=== PATIENT | male | born 1950 | race Caucasian/White ===

== ENCOUNTER 2022-03-12 23:05 | Inpatient (IN) ==
--- NOTE | 2022-03-12 23:25 | Emergency Department Note ---
Impression & Plan Sepsis, Acute hypernatremia, STEPHIE (acute kidney injury), Acute UTI Admit to the [facility] ED Provider Note NAME: ROSE MARY KOENIG AGE: 71 SEX: M ARRIVES VIA: Ambulance INFORMANT: EMS ED PROVIDER(S): Yumiko Nielson DO CHIEF COMPLAINT: Weakness PLAN: Disposition: Admit to the [facility] Condition: Guarded MEDICAL DECISION MAKING: The patient presents to the emergency department from [facility] with generalized weakness and a history of blood pressure of 70/30. The patient was incontinent of stool. Patient suffers from dementia. The patient has never been at this facility before. According to family and discussion with the nurses, he has arrived at the half-way just 4 weeks ago. The patient has a suprapubic catheter that is producing turbid thick urine. A septic protocol has revealed a white blood cell count of 29,000 with an elevated lactate. Patient remained hemodynamically stable while here in the emergency department. He was treated with 2 L of crystalloid IV and started on a saline drip. He was given IV Zosyn. Patient has a creatinine greater than 3 but we have no previous baseline values to compare to. Does have an elevated troponin. We have no previous EKGs for comparison. I discussed the case with [facility] ospitalist and they will evaluate the patient for further management. Triage Nursing notes reviewed and agree with them. The history is obtained from EMS. Prior medical records reviewed Vital Signs: reviewed and remarkable for tachycardic Differential diagnosis: Sepsis, UTI, dehydration, hyponatremia, hypoglycemia ER treatment provided: IV normal saline bolus-2 L IV normal saline drip IV Zosyn Diagnostics interpreted by me: ECG: Atrial flutter with variable AV block at a rate of 140 and a right bundle branch block. This was somewhat concerning for ischemia. Cardiac Monitoring: Atrial flutter at a rate of 136 Laboratory studies: See below Imaging studies: As per my interpretation Portable chest x-ray: No obvious pulmonary infiltrates or pleural effusions. HPI: 71/M arrives for evaluation of weakness. Patient presents from [facility] with generalized weakness and hypotension. Staff there assisted the patient to the bathroom found that he was extremely weak and found a blood pressure of 70/30. The patient was incontinent of stool. ROS: See above HPI for pertinent positives & negatives. A total of 10 systems reviewed and were otherwise negative. PAST MEDICAL HISTORY:Alzheimer's disease PAST SURGICAL HISTORY:See Below FAMILY HISTORY:See Below SOCIAL HISTORY:Patient was just moved into [facility] 4 weeks ago. HOME MEDICATIONS:See Below ALLERGIES:Bactrim VITALS:See Below PHYSICAL EXAMINATION: HEENT: Head - normocephalic and atraumatic. Pupils are equal, round, and reactive to light. Extraocular eye muscles are intact, and sclera are anicte yoselin. Nose - moist nasal mucosa without discharge. Mouth -family dry buccal mucosa. Oropharynx is nonerythematous and there is no tonsillar exudate or edema noted. Neck: Supple; no JVD or cervical lymphadenopathy Heart: Tachycardic rate regular rhythm There is a normal S1 and S2 with no murmurs, clicks, or gallops appreciated. Lungs: Clear to auscultation bilaterally with no wheezes, rales, or rhonchi. Abdomen: Soft, completely nontender, nondistended, with good bowel sounds. There are no palpable pulsatile masses or hepatosplenomegaly. There is no guarding, rigidity, or rebound noted. Extremities: No evidence of cyanosis, clubbing, or edema. There are easily palpable peripheral pulses. Skin: cold and dry with poor turgor and no rashes. ED COURSE: Times/Reassessments: 2310: Patient was evaluated in room C4. A complete history and physical was performed. Previous electronic medical records were reviewed. An order was placed for continuous cardiac monitoring. The patient was in a flutter at a rate of 109. An IV lock was initiated and a septic protocol was performed. The patient was bolused with 2 L of normal saline solution was placed on a normal saline drip. Chest x-ray was performed as described above. A urine specimen was obtained from the suprapubic catheter. The patient was treated with IV Zosyn. I discussed the case with the [facility] Hospitalist Yumiko Nielson DO Past Med/Surg History Medical History (Updated 03/13/22 @ 05:44 by Yumiko Nielson DO) Alzheimer disease Social History Smoking Status: Unknown if ever smoked Preferred Language: Bulgarian Feels Safe at Home: Yes Allergies Allergies Allergy/AdvReac Type Severity Reaction Status Date / Time sulfamethoxazole Allergy Unknown Verified 03/13/22 00:33 [From Bactrim] trimethoprim [From Bactrim] Allergy Unknown Verified 03/13/22 00:33 Results & Data (ED) Vital Signs Vital Signs - 24 hr 03/12/22 23:16 03/12/22 23:29 03/12/22 23:45 Temperature Temperature Source Pulse Rate 126 H Pulse Rate [Right Finger] Pulse Rate from SpO2 Sensor Respiratory Rate 16 Respiratory Effort / Characteristics Non-Labored Respiratory Depth Normal Blood Pressure 111/63 Blood Pressure [Right Arm] Blood Pressure Mean 79 Blood Pressure Mean [Right Arm] Pulse Oximetry 95 92 91 Oxygen Delivery Method Room Air Room Air Room Air Sepsis Recent Fever Within 48 Hours No Sepsis New/Unexplained Change in Mental Status No Sepsis Action Taken by Nursing No Action Required Pulse Oximetry Post Tiitration 03/13/22 00:21 03/13/22 00:21 03/13/22 01:44 Temperature 36.3 C L Temperature Source Rectal Pulse Rate Pulse Rate [Right Finger] 119 H Pulse Rate from SpO2 Sensor Respiratory Rate 20 Respiratory Effort / Characteristics Non-Labored Respiratory Depth Normal Blood Pressure Blood Pressure [Right Arm] 122/68 Blood Pressure Mean Blood Pressure Mean [Right Arm] 86 Pulse Oximetry 91 Oxygen Delivery Method Room Air Room Air Sepsis Recent Fever Within 48 Hours Sepsis New/Unexplained Change in Mental Status Sepsis Action Taken by Nursing Pulse Oximetry Post Tiitration 91 03/12/22 23:08 03/12/22 23:10 03/12/22 23:10 Temperature Temperature Source Pulse Rate 133 H 106 H Pulse Rate [Right Finger] Pulse Rate from SpO2 Sensor Respiratory Rate 22 25 H Respiratory Effort / Characteristics Respiratory Depth Blood Pressure 111/63 Blood Pressure [Right Arm] Blood Pressure Mean 79 Blood Pressure Mean [Right Arm] Pulse Oximetry Oxygen Delivery Method Sepsis Recent Fever Within 48 Hours Sepsis New/Unexplained Change in Mental Status Sepsis Action Taken by Nursing Pulse Oximetry Post Tiitration 03/12/22 23:30 03/12/22 23:30 03/13/22 00:00 Temperature Temperature Source Pulse Rate 102 H 124 H Pulse Rate [Right Finger] Pulse Rate from SpO2 Sensor 93 H 89 Respiratory Rate 23 19 Respiratory Effort / Characteristics Respiratory Depth Blood Pressure 103/63 Blood Pressure [Right Arm] Blood Pressure Mean 76 Blood Pressure Mean [Right Arm] Pulse Oximetry 91 80 L Oxygen Delivery Method Sepsis Recent Fever Within 48 Hours Sepsis New/Unexplained Change in Mental Status Sepsis Action Taken by Nursing Pulse Oximetry Post Tiitration 03/13/22 00:15 03/13/22 00:15 03/13/22 00:30 Temperature Temperature Source Pulse Rate 106 H Pulse Rate [Right Finger] Pulse Rate from SpO2 Sensor 95 H Respiratory Rate 21 Respiratory Effort / Characteristics Respiratory Depth Blood Pressure 122/68 127/58 L Blood Pressure [Right Arm] Blood Pressure Mean 86 81 Blood Pressure Mean [Right Arm] Pulse Oximetry 92 Oxygen Delivery Method Sepsis Recent Fever Within 48 Hours Sepsis New/Unexplained Change in Mental Status Sepsis Action Taken by Nursing Pulse Oximetry Post Tiitration 03/13/22 00:30 03/13/22 01:00 03/13/22 01:00 Temperature Temperature Source Pulse Rate 140 H Pulse Rate [Right Finger] Pulse Rate from SpO2 Sensor 93 H 99 H Respiratory Rate 22 22 Respiratory Effort / Characteristics Respiratory Depth Blood Pressure 118/59 L Blood Pressure [Right Arm] Blood Pressure Mean 78 Blood Pressure Mean [Right Arm] Pulse Oximetry Oxygen Delivery Method Sepsis Recent Fever Within 48 Hours Sepsis New/Unexplained Change in Mental Status Sepsis Action Taken by Nursing Pulse Oximetry Post Tiitration 03/13/22 01:30 03/13/22 02:00 03/13/22 02:00 Temperature Temperature Source Pulse Rate 119 H Pulse Rate [Right Finger] Pulse Rate from SpO2 Sensor Respiratory Rate 26 H 20 Respiratory Effort / Characteristics Respiratory Depth Blood Pressure 108/82 Blood Pressure [Right Arm] Blood Pressure Mean 90 Blood Pressure Mean [Right Arm] Pulse Oximetry 90 Oxygen Delivery Method Sepsis Recent Fever Within 48 Hours Sepsis New/Unexplained Change in Mental Status Sepsis Action Taken by Nursing Pulse Oximetry Post Tiitration 03/13/22 02:30 03/13/22 02:30 03/13/22 03:00 Temperature Temperature Source Pulse Rate 117 H Pulse Rate [Right Finger] Pulse Rate from SpO2 Sensor 95 H Respiratory Rate 21 Respiratory Effort / Characteristics Respiratory Depth Blood Pressure 121/62 128/60 Blood Pressure [Right Arm] Blood Pressure Mean 81 82 Blood Pressure Mean [Right Arm] Pulse Oximetry 92 Oxygen Delivery Method Sepsis Recent Fever Within 48 Hours Sepsis New/Unexplained Change in Mental Status Sepsis Action Taken by Nursing Pulse Oximetry Post Tiitration 03/13/22 03:00 Temperature Temperature Source Pulse Rate 115 H Pulse Rate [Right Finger] Pulse Rate from SpO2 Sensor Respiratory Rate 25 H Respiratory Effort / Characteristics Respiratory Depth Blood Pressure Blood Pressure [Right Arm] Blood Pressure Mean Blood Pressure Mean [Right Arm] Pulse Oximetry Oxygen Delivery Method Sepsis Recent Fever Within 48 Hours Sepsis New/Unexplained Change in Mental Status Sepsis Action Taken by Nursing Pulse Oximetry Post Tiitration Laboratory Data Result diagrams: 03/12/22 23:56 03/13/22 02:53 Lab Results 03/12/22 03/12/22 03/12/22 Range/Units 23:27 23:56 23:56 WBC 29.28 H (4.8-10.8) K/ul RBC 5.98 (4.63-6.08) M/uL Hgb 16.1 (14.0-18.0) g/dl Hct 51.7 H (40.1-51.0) % MCV 86.5 (80.0-100.0) fL MCH 26.9 (25.0-34.0) pg MCHC 31.1 L (32.0-36.0) g/dL RDW Std Deviation 57.0 H (36.4-46.3) fL RDW Coeff of Cristal 19.4 H (11.5-14.5) % Plt Count 243 (130-400) K/uL MPV 10.6 (9.4-12.4) fL Immature Gran % (Auto) 1.0 % Neut % (Auto) 87.2 % Lymph % (Auto) 5.7 % [place] % (Auto) 5.9 % Eos % (Auto) 0.0 % Baso % (Auto) 0.2 % Neut # (Auto) 25.53 H (1.4-6.5) K/uL Lymph # (Auto) 1.67 (1.2-3.4) K/uL [place] # (Auto) 1.73 H (0.24-0.82) K/uL Eos # (Auto) 0.01 (0-0.50) K/uL Baso # (Auto) 0.06 (0-0.2) K/uL Immature Gran # (Auto) 0.28 H (0.00-0.02) K/uL Sodium 162 H* (136-145) mmol/L Potassium 4.5 (3.5-5.1) mmol/L Chloride 120 H (98-107) mmol/L Carbon Dioxide 27 (21-32) mmol/L Anion Gap 15 H (3-11) BUN 89 H (6-23) mg/dl Creatinine 3.15 H (0.6-1.4) mg/dl Est Cr Clr Drug Dosing 20.7 ml/min Est GFR ( Amer) 21.5 ml/min Est GFR (Non-Af Amer) 18.6 ml/min BUN/Creatinine Ratio 28.3 H (10-20) Glucose 171 H (70-99(Fasting)) mg/dl Lactate (0.4-2.0) mmol/L Calcium 10.0 (8.5-10.1) mg/dl Total Bilirubin 0.7 (0.2-1.0) mg/dl AST 112 H (13-39) U/L ALT 60 H (7-52) U/L Alkaline Phosphatase 107 H (34-104) U/L Troponin I High Sens 171.6 H* (0-20) pg/ml Total Protein 8.8 H (6.0-8.3) gm/dl Albumin 4.3 (3.4-5.0) gm/dl Globulin 4.5 H (2.5-4.0) gm/dl Albumin/Globulin Ratio 1.0 (0.9-2) TSH (0.300-4.500) uIu/ml Free T4 (0.61-1.60) ng/dl Urine Color [place] Urine Appearance Turbid A (Clear) Urine pH 5.0 (4.5-7.5) Ur Specific [place] 1.027 (1.000-1.030) Urine Protein 2+ H (Negative) Urine Glucose (UA) Negative (Negative) Urine Ketones 1+ H (Negative) Urine Blood 3+ H (Negative) Urine Nitrite Positive A (Negative) Urine Bilirubin 1+ H (Negative) Urine Urobilinogen Negative (Negative) Ur Leukocyte Esterase 2+ H (Negative) Urine WBC (Auto) >30 H (0-5) /hpf Urine RBC (Auto) 5-10 H (0-4) /hpf U Hyaline Cast (Auto) 1-5 (0-5) /lpf U Epithel Cells (Auto) 10-20 H (0-5) /lpf Urine Bacteria (Auto) 1+ H (Negative) Urine Crystals Not Reportable Calcium Oxalate Crystal Present A (None Prsent) Amorphous Sediment Present A (None Prsent) Urine Osmolality (500-800) mOsm/kg Ur Random Sodium mmol/L Ur Random Potassium mmol/L SARS-CoV-2, RNA, NAAT (NEGATIVE) 03/12/22 03/13/22 03/13/22 Range/Units 23:56 00:00 00:00 WBC (4.8-10.8) K/ul RBC (4.63-6.08) M/uL Hgb (14.0-18.0) g/dl Hct (40.1-51.0) % MCV (80.0-100.0) fL MCH (25.0-34.0) pg MCHC (32.0-36.0) g/dL RDW Std Deviation (36.4-46.3) fL RDW Coeff of Cristal (11.5-14.5) % Plt Count (130-400) K/uL MPV (9.4-12.4) fL Immature Gran % (Auto) % Neut % (Auto) % Lymph % (Auto) % [place] % (Auto) % Eos % (Auto) % Baso % (Auto) % Neut # (Auto) (1.4-6.5) K/uL Lymph # (Auto) (1.2-3.4) K/uL [place] # (Auto) (0.24-0.82) K/uL Eos # (Auto) (0-0.50) K/uL Baso # (Auto) (0-0.2) K/uL Immature Gran # (Auto) (0.00-0.02) K/uL Sodium (136-145) mmol/L Potassium (3.5-5.1) mmol/L Chloride (98-107) mmol/L Carbon Dioxide (21-32) mmol/L Anion Gap (3-11) BUN (6-23) mg/dl Creatinine (0.6-1.4) mg/dl Est Cr Clr Drug Dosing ml/min Est GFR ( Amer) ml/min Est GFR (Non-Af Amer) ml/min BUN/Creatinine Ratio (10-20) Glucose (70-99(Fasting)) mg/dl Lactate (0.4-2.0) mmol/L Calcium (8.5-10.1) mg/dl Total Bilirubin (0.2-1.0) mg/dl AST (13-39) U/L ALT (7-52) U/L Alkaline Phosphatase (34-104) U/L Troponin I High Sens (0-20) pg/ml Total Protein (6.0-8.3) gm/dl Albumin (3.4-5.0) gm/dl Globulin (2.5-4.0) gm/dl Albumin/Globulin Ratio (0.9-2) TSH 5.556 H (0.300-4.500) uIu/ml Free T4 0.73 (0.61-1.60) ng/dl Urine Color Urine Appearance (Clear) Urine pH (4.5-7.5) Ur Specific [place] (1.000-1.030) Urine Protein (Negative) Urine Glucose (UA) (Negative) Urine Ketones (Negative) Urine Blood (Negative) Urine Nitrite (Negative) Urine Bilirubin (Negative) Urine Urobilinogen (Negative) Ur Leukocyte Esterase (Negative) Urine WBC (Auto) (0-5) /hpf Urine RBC (Auto) (0-4) /hpf U Hyaline Cast (Auto) (0-5) /lpf U Epithel Cells (Auto) (0-5) /lpf Urine Bacteria (Auto) (Negative) Urine Crystals Calcium Oxalate Crystal (None Prsent) Amorphous Sediment (None Prsent) Urine Osmolality 809 H (500-800) mOsm/kg Ur Random Sodium 39 mmol/L Ur Random Potassium 85.3 mmol/L SARS-CoV-2, RNA, NAAT (NEGATIVE) 03/13/22 03/13/22 03/13/22 Range/Units 00:06 01:00 02:20 WBC (4.8-10.8) K/ul RBC (4.63-6.08) M/uL Hgb (14.0-18.0) g/dl Hct (40.1-51.0) % MCV (80.0-100.0) fL MCH (25.0-34.0) pg MCHC (32.0-36.0) g/dL RDW Std Deviation (36.4-46.3) fL RDW Coeff of Cristal (11.5-14.5) % Plt Count (130-400) K/uL MPV (9.4-12.4) fL Immature Gran % (Auto) % Neut % (Auto) % Lymph % (Auto) % [place] % (Auto) % Eos % (Auto) % Baso % (Auto) % Neut # (Auto) (1.4-6.5) K/uL Lymph # (Auto) (1.2-3.4) K/uL [place] # (Auto) (0.24-0.82) K/uL Eos # (Auto) (0-0.50) K/uL Baso # (Auto) (0-0.2) K/uL Immature Gran # (Auto) (0.00-0.02) K/uL Sodium (136-145) mmol/L Potassium (3.5-5.1) mmol/L Chloride (98-107) mmol/L Carbon Dioxide (21-32) mmol/L Anion Gap (3-11) BUN (6-23) mg/dl Creatinine (0.6-1.4) mg/dl Est Cr Clr Drug Dosing ml/min Est GFR ( Amer) ml/min Est GFR (Non-Af Amer) ml/min BUN/Creatinine Ratio (10-20) Glucose (70-99(Fasting)) mg/dl Lactate 2.3 H* 2.1 H* (0.4-2.0) mmol/L Calcium (8.5-10.1) mg/dl Total Bilirubin (0.2-1.0) mg/dl AST (13-39) U/L ALT (7-52) U/L Alkaline Phosphatase (34-104) U/L Troponin I High Sens (0-20) pg/ml Total Protein (6.0-8.3) gm/dl Albumin (3.4-5.0) gm/dl Globulin (2.5-4.0) gm/dl Albumin/Globulin Ratio (0.9-2) TSH (0.300-4.500) uIu/ml Free T4 (0.61-1.60) ng/dl Urine Color Urine Appearance (Clear) Urine pH (4.5-7.5) Ur Specific [place] (1.000-1.030) Urine Protein (Negative) Urine Glucose (UA) (Negative) Urine Ketones (Negative) Urine Blood (Negative) Urine Nitrite (Negative) Urine Bilirubin (Negative) Urine Urobilinogen (Negative) Ur Leukocyte Esterase (Negative) Urine WBC (Auto) (0-5) /hpf Urine RBC (Auto) (0-4) /hpf U Hyaline Cast (Auto) (0-5) /lpf U Epithel Cells (Auto) (0-5) /lpf Urine Bacteria (Auto) (Negative) Urine Crystals Calcium Oxalate Crystal (None Prsent) Amorphous Sediment (None Prsent) Urine Osmolality (500-800) mOsm/kg Ur Random Sodium mmol/L Ur Random Potassium mmol/L SARS-CoV-2, RNA, NAAT NEGATIVE (NEGATIVE) 03/13/22 03/13/22 Range/Units 02:53 02:53 WBC (4.8-10.8) K/ul RBC (4.63-6.08) M/uL Hgb (14.0-18.0) g/dl Hct (40.1-51.0) % MCV (80.0-100.0) fL MCH (25.0-34.0) pg MCHC (32.0-36.0) g/dL RDW Std Deviation (36.4-46.3) fL RDW Coeff of Cristal (11.5-14.5) % Plt Count (130-400) K/uL MPV (9.4-12.4) fL Immature Gran % (Auto) % Neut % (Auto) % Lymph % (Auto) % [place] % (Auto) % Eos % (Auto) % Baso % (Auto) % Neut # (Auto) (1.4-6.5) K/uL Lymph # (Auto) (1.2-3.4) K/uL [place] # (Auto) (0.24-0.82) K/uL Eos # (Auto) (0-0.50) K/uL Baso # (Auto) (0-0.2) K/uL Immature Gran # (Auto) (0.00-0.02) K/uL Sodium 162 H* (136-145) mmol/L Potassium 4.2 (3.5-5.1) mmol/L Chloride 127 H (98-107) mmol/L Carbon Dioxide 26 (21-32) mmol/L Anion Gap 9 (3-11) BUN 86 H (6-23) mg/dl Creatinine 3.08 H (0.6-1.4) mg/dl Est Cr Clr Drug Dosing 21.1 ml/min Est GFR ( Amer) 22.1 ml/min Est GFR (Non-Af Amer) 19.1 ml/min BUN/Creatinine Ratio 27.9 H (10-20) Glucose 155 H (70-99(Fasting)) mg/dl Lactate (0.4-2.0) mmol/L Calcium 8.4 L (8.5-10.1) mg/dl Total Bilirubin (0.2-1.0) mg/dl AST (13-39) U/L ALT (7-52) U/L Alkaline Phosphatase (34-104) U/L Troponin I High Sens 198.0 H* (0-20) pg/ml Total Protein (6.0-8.3) gm/dl Albumin (3.4-5.0) gm/dl Globulin (2.5-4.0) gm/dl Albumin/Globulin Ratio (0.9-2) TSH (0.300-4.500) uIu/ml Free T4 (0.61-1.60) ng/dl Urine Color Urine Appearance (Clear) Urine pH (4.5-7.5) Ur Specific [place] (1.000-1.030) Urine Protein (Negative) Urine Glucose (UA) (Negative) Urine Ketones (Negative) Urine Blood (Negative) Urine Nitrite (Negative) Urine Bilirubin (Negative) Urine Urobilinogen (Negative) Ur Leukocyte Esterase (Negative) Urine WBC (Auto) (0-5) /hpf Urine RBC (Auto) (0-4) /hpf U Hyaline Cast (Auto) (0-5) /lpf U Epithel Cells (Auto) (0-5) /lpf Urine Bacteria (Auto) (Negative) Urine Crystals Calcium Oxalate Crystal (None Prsent) Amorphous Sediment (None Prsent) Urine Osmolality (500-800) mOsm/kg Ur Random Sodium mmol/L Ur Random Potassium mmol/L SARS-CoV-2, RNA, NAAT (NEGATIVE) Administered Medications Dextrose (D5w) 1,000 mls @ 100 mls/hr IV .Q10H DEX Stop: 03/13/22 12:14 Last Admin: 03/13/22 03:46 Dose: 100 mls/hr Documented By: SM Discontinued Medications Sodium Chloride (Nss) 500 mls @ 999 mls/hr IV .Q31M ONE Stop: 03/13/22 00:08 Last Infusion: 03/13/22 00:22 Dose: 0 mls/hr Documented By: Admin: 03/12/22 23:51 Dose: 999 mls/hr Documented By: MES Sodium Chloride (Nss) 500 mls @ 125 mls/hr IV .Q4H DEX Stop: 04/11/22 23:44 Last Infusion: 03/13/22 04:45 Dose: 0 mls/hr Documented By: Admin: 03/13/22 00:18 Dose: 125 mls/hr Documented By: LUNA Piperacillin Sod/Tazobactam (Sod 4.5 gm/ Dextrose) 120 mls @ 200 mls/hr IV Q8H STA; Protocol Stop: 03/13/22 01:08 Last Infusion: 03/13/22 01:20 Dose: 0 mls/hr Documented By: Admin: 03/13/22 00:42 Dose: 200 mls/hr Documented By: LUNA Sodium Chloride (Nss 1000ml) 1,000 mls @ 999 mls/hr IV .Q1H1M ONE Stop: 03/13/22 02:35 Last Infusion: 03/13/22 02:43 Dose: 0 mls/hr Documented By: Admin: 03/13/22 01:40 Dose: 999 mls/hr Documented By: LUNA Sodium Chloride (Nss) 500 mls @ 999 mls/hr IV .Q31M ONE Stop: 03/13/22 02:34 Last Infusion: 03/13/22 03:45 Dose: 0 mls/hr Documented By: Admin: 03/13/22 02:48 Dose: 999 mls/hr Documented By: LUNA Discharge Plan Visit Data Chief Complaint: Weakness ED Provider: Yumiko Nielson Discharge Problem: Sepsis, Acute hypernatremia, STEPHIE (acute kidney injury), Acute UTI : Sepsis Qualifiers: Sepsis type: sepsis due to unspecified organism Severe sepsis acute organ dysfunction type: acute renal failure Acute renal failure type: unspecified Severe sepsis shock status: without septic shock
[2022-03-12] MEDS ORDERED: SODIUM CHLORIDE 0.9% 500 ML IV ONE (23:38)
[2022-03-12 23:45] LABS: Appearance Urine Turbid (Clear); Bacteria Urine Automated 1+ (Negative); Blood Urine 3+ (Negative); Color Urine Orange; Glucose Urine UA Negative (Negative); Ketones Urine 1+ (Negative); Leukocyte Esterase Urine 2+ (Negative); Nitrite Urine Positive (Negative); Protein Urine 2+ (Negative); Specific Gravity Urine 1.027 (1.000-1.030); Urobilinogen Urine Negative (Negative); WBC Urine Automated >30 /hpf (0-5)
[2022-03-12] MEDS ORDERED: SODIUM CHLORIDE 0.9% 500 ML IV SCH (23:45)
[2022-03-12 23:56] LABS: Bilirubin Urine 1+ (Negative)
[2022-03-13 00:09] LABS: Amorphous Sediment Urine Present (None Prsent); Calcium Oxalate Crystals Urine Present (None Prsent)
[2022-03-13 00:29] LABS: Hematocrit (blood only) 51.7 % (40.1-51.0); Hemoglobin 16.1 g/dl (14.0-18.0); Mean Corpuscular Hemoglobin 26.9 pg (25.0-34.0); Mean Corpuscular Hgb Conc 31.1 g/dL (32.0-36.0); Mean Corpuscular Volume 86.5 fL (80.0-100.0); Mean Platelet Volume 10.6 fL (9.4-12.4); Platelet Count 243 K/uL (130-400); RDW Coefficient of Variation 19.4 % (11.5-14.5); Red Blood Count 5.98 M/uL (4.63-6.08); White Blood Count 29.28 K/ul (4.8-10.8)
[2022-03-13] MEDS ORDERED: PIPERACILLIN/TAZOBACTAM 4.5 GM in DEXTROSE 5% 100 ML IV STA (00:33)
[2022-03-13 00:52] LABS: Basophils # (auto) 0.06 K/uL (0-0.2); Basophils % (auto) 0.2 %; Eosinophils # (auto) 0.01 K/uL (0-0.50); Immature Granulocytes # (auto) 0.28 K/uL (0.00-0.02); Lymphocytes # (auto) 1.67 K/uL (1.2-3.4); Lymphocytes % (auto) 5.7 %; Monocytes # (auto) 1.73 K/uL (0.24-0.82); Monocytes % (auto) 5.9 %; Neutrophils # (auto) 25.53 K/uL (1.4-6.5); Neutrophils % (auto) 87.2 %
[2022-03-13 01:05] LABS: Albumin Level 4.3 gm/dl (3.4-5.0); BUN Creatinine Ratio 28.3 (10-20); Bilirubin,Total 0.7 mg/dl (0.2-1.0); Creatinine Clr Calc Pharmacy 20.7 ml/min; Est GFR (African American) 21.5 ml/min; Est GFR (Non-African American) 18.6 ml/min; Globulin 4.5 gm/dl (2.5-4.0); Potassium 4.5 mmol/L (3.5-5.1); Total Protein 8.8 gm/dl (6.0-8.3); Troponin I High Sensitivity 171.6 pg/ml (0-20)
[2022-03-13 01:16] LABS: Thyroid Stimulating Hormone 5.556 uIu/ml (0.300-4.500)
[2022-03-13] MEDS ORDERED: SODIUM CHLORIDE 0.9% 1000ML 1,000 ML IV ONE (01:35)
[2022-03-13 01:49] LABS: T4 Free Thyroxine 0.73 ng/dl (0.61-1.60)
--- NOTE | 2022-03-13 01:59 | History & Physical Report ---
Date of Service March 13, 2022 Assessment & Plan (1) Hypernatremia: Plan: 71yo male with a history of Alzheimer's dementia presents with a history of weakness of unclear duration, found on admission with hypernatremia to 162. Hypernatremia Sodium 162 on admission; no prior values available to assess if this is acute or [id number] In the ED, received NSS 2.5L bolus; repeat serum sodium equivocal (162 --> 162) Free water deficit (based on admission labs) 5.5L D5W @ 100mL/hr (x1 bag ordered) Urine osmolality, sodium, and potassium ordered Trend BMP Sepsis suspected secondary to urinary tract infection UA notable for turbid urine with 2+ protein, 3+ blood, positive nitrites, 2+ leuk esterase, WBCs>30, 1+ bacteria, calcium oxalate crystals, and amorphous sediment On admission, noted with leukocytosis (29.3), elevated lactate (2.1) Received zosyn (x1 dose) in ED Consider further treatment with zosyn or other coverage for MDR organisms; will defer decision to day team STEPHIE Creatinine on admission 3.15 (baseline unknown), repeat value 3.08 IVF as above, avoid nephrotoxins, trend daily BMP, obtain outpatient records Elevated troponin On admission, hsTroponin elevated to 171.6, repeat value pending EKG: atrial flutter without overt sign of ischemic change Patient without obvious sign of CP on exam though unable to participate in ROS given cognitive status Continue to monitor Transaminitis On admission, elevations of AST (112), ALT (60), alk phos (107) noted Tbili wnl Consider US abdomen +/- further workup Elevated TSH On admission, TSH elevated to 5.6 Unclear if this represents hypothyroidism or if TSH is elevated as an acute phase reactant Recommend repeat check in six weeks on an outpatient basis Alzheimer's dementia Patient's home regimen unclear Will continue to monitor FEN: NPO, IVF as above Code status: full code DVT ppx: SCDs Dispo: med/telemetry (2) Alzheimer disease: History of Present Illness Primary Care Provider: [facility] 71yo male with a history of Alzheimer's dementia presents with a history of weakness of unclear duration. Patient is a [facility] resident. Per EMS report, patient was noted at [facility] with physical weakness upon trying to get up to go to the bathroom earlier in the day on 03/12. [facility] also noted that patient had low BP. Patient is unable to answer questions due to advanced Alzheimer's dementia and is unable to participate in ROS as a result. Upon arrival, vitals were notable for tachycardia (110-120s); BP controlled, no tachypnea, patient afebrile, spO2 91-95% on room air. Initial labs were notable for hypernatremia (162), leukocytosis (29.3), elevated BUN (89) and creatinine (3.15; no prior value available), elevated hsTroponin (171.6), elevated lactate (2.3), transaminitis (AST 112, ALT 60, AlkPhos 107), elevated total protein (8.8), and elevated TSH (5.6). UA was notable for turbid urine with 2+ protein, 3+ blood, positive nitrites, 2+ leuk esterase, WBCs>30, 1+ bacteria, calcium oxalate crystals, and amorphous sediment. Covid PCR was ne gative. No anemia, platelets wnl. In the ED, patient was given NSS bolus (1.5L in total), started on NSS @ 125mL/hr, and given a dose of zosyn. Allergies Allergy/AdvReac Type Severity Reaction Status Date / Time sulfamethoxazole Allergy Unknown Verified 03/13/22 00:33 [From Bactrim] trimethoprim [From Bactrim] Allergy Unknown Verified 03/13/22 00:33 Home Medications Medication Instructions Recorded Confirmed Type aspirin 325 mg tablet 325 mg PO DAILY 03/13/22 03/13/22 History cephalexin 500 mg capsule 500 mg PO TID 03/13/22 03/13/22 History cholecalciferol (vitamin D3) 1,250 10,000 mcg PO DAILY 03/13/22 03/13/22 History mcg (50,000 unit) tablet clotrimazole 1 % topical cream 1 applic topical BID 03/13/22 03/13/22 History divalproex 125 mg capsule,delayed 125 mg PO TID 03/13/22 03/13/22 History release sprinkle (Depakote Sprinkles) escitalopram oxalate 10 mg tablet 10 mg PO DAILY 03/13/22 03/13/22 History (Lexapro) haloperidol 2 mg tablet 2 mg PO BID 03/13/22 03/13/22 History ibuprofen 400 mg tablet 800 mg PO Q6H pain 03/13/22 03/13/22 History lisinopril 10 mg tablet 10 mg PO DAILY 03/13/22 03/13/22 History magnesium hydroxide 2,400 mg/10 mL 5 ml PO DAILY PRN Constipation 03/13/22 03/13/22 History oral suspension melatonin 5 mg tablet 6 mg PO HS PRN Sleep 03/13/22 03/13/22 History ondansetron 4 mg oral soluble film 4 mg PO Q6H 03/13/22 03/13/22 History quetiapine 100 mg tablet (Seroquel) 100 mg PO TID 03/13/22 03/13/22 History sennosides 8.6 mg-docusate sodium 2 tab-cap PO HS constipation 03/13/22 03/13/22 History 50 mg tablet trazodone 50 mg tablet 50 mg PO HS depression 03/13/22 03/13/22 History Past Med/Surg History Medical History (Updated 03/13/22 @ 05:44 by Yumiko Nielson DO) Alzheimer disease Social History Smoking Status: Unknown if ever smoked Hx Alcohol Use: No Hx Substance Use: No Preferred Language: Tajik Communication Ability: Impaired 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 Beliefs That Will Affect Care: None marital status: Current Living Situation: Half-Way Current Living Situation Comment: from [facility] Other Information That Helps Us Care for You: No Feels Safe at Home: Yes Safety Concerns: Feels Safe At This Time Assistive Devices: Walker and Wheelchair Physical Exam Physical Exam: Constitutional: no acute distress HEENT: NCAT, no conjunctival injection, MMM CV: tachycardic, regular rhythm, no murmur appreciated, extremities well- perfused, no LE edema Resp: CTABL, no wheezes/rales/rhonchi appreciated, no increased work of breathing GI: soft, nondistended, nontender, BS normoactive MSK: no gross deformities appreciated Skin: warm, dry, no rash appreciated Neuro: no focal neurologic deficit appreciated Results & Data Results & Data ([facility]) Vital Signs (Past 12 Hours) Vital Signs Temp Pulse Pulse Resp BP BP Pulse Ox 03/13/22 01:44 36.3 C L 03/13/22 00:21 119 H 20 122/68 91 03/13/22 00:21 03/12/22 23:45 91 03/12/22 23:29 126 H 16 111/63 92 03/12/22 23:16 95 O2 Del Method 03/13/22 01:44 03/13/22 00:21 Room Air 03/13/22 00:21 Room Air 03/12/22 23:45 Room Air 03/12/22 23:29 Room Air 03/12/22 23:16 Room Air Supervising Physician Co-Signing Physician Notes Attending addendum: I have physically seen this patient, have supervised the medical residents activities, and agree with the H&P unless as otherwise noted. Assessment and Plan: Hypernatremia- Sodium 162 on admission Status post 2.5 L normal saline bolus from the ED, follow-up sodium 162 Free water deficit calculated 5.5 L D5W at 100 mils per hour Follow serial BMP, serum osmolality Order urine osmolality Renal insufficiency/unknown if STEPHIE due to unknown baseline- Creatinine 3.15 on admission Rehydrate as noted above Follow serial laboratories as noted Hold lisinopril Add CK to assess for possible rhabdo, due to associated abnormal transaminases Elevated troponin/hypertension/atrial flutter- Troponin 171.6 on admission The patient will be admitted to telemetry for serial cardiac enzymes, serial EKG's, cardiac rhythm monitoring and a 2-D echocardiogram with Dopplers. Resident Activity Tracking Resident Involvement: Resident Care Provided and [employer] Coverage Note Care Provided: Adult Hospital Medicine
[2022-03-13] MEDS ORDERED: SODIUM CHLORIDE 0.9% 500 ML IV ONE (02:04)
[2022-03-13 03:19] LABS: Potassium Random Urine 85.3 mmol/L
[2022-03-13 03:29] LABS: BUN Creatinine Ratio 27.9 (10-20); Calcium 8.4 mg/dl (8.5-10.1); Creatinine Clr Calc Pharmacy 21.1 ml/min; Est GFR (African American) 22.1 ml/min; Est GFR (Non-African American) 19.1 ml/min; Potassium 4.2 mmol/L (3.5-5.1)
[2022-03-13] MEDS: DEXTROSE 5% 1,000 ML IV SCH ×2 (03:46→13:32)
[2022-03-13 07:52] LABS: Hematocrit (blood only) 45.8 % (40.1-51.0); Mean Corpuscular Hemoglobin 26.9 pg (25.0-34.0); Mean Corpuscular Hgb Conc 30.6 g/dL (32.0-36.0); Mean Corpuscular Volume 88.1 fL (80.0-100.0); Mean Platelet Volume 10.8 fL (9.4-12.4); Platelet Count 196 K/uL (130-400); RDW Coefficient of Variation 19.3 % (11.5-14.5); RDW Standard Deviation 59.8 fL (36.4-46.3)
[2022-03-13] MEDS ORDERED: SODIUM CHLORIDE 0.9% 1000ML 1,000 ML IV SCH (08:00)
[2022-03-13] MEDS ORDERED: LACTATED RINGER'S 1,000 ML IV SCH (08:15)
[2022-03-13 08:19] LABS: BUN Creatinine Ratio 30.1 (10-20); Calcium 8.3 mg/dl (8.5-10.1); Creatinine Clr Calc Pharmacy 21.8 ml/min; Est GFR (African American) 22.9 ml/min; Est GFR (Non-African American) 19.8 ml/min; Magnesium 2.6 mg/dl (1.7-2.4); Potassium 3.6 mmol/L (3.5-5.1)
[2022-03-13 08:29] LABS: Basophils # (auto) 0.06 K/uL (0-0.2); Basophils % (auto) 0.2 %; Eosinophils # (auto) 0.01 K/uL (0-0.50); Immature Granulocytes # (auto) 0.27 K/uL (0.00-0.02); Immature Granulocytes % (auto) 0.9 %; Lymphocytes # (auto) 1.34 K/uL (1.2-3.4); Lymphocytes % (auto) 4.6 %; Monocytes # (auto) 1.53 K/uL (0.24-0.82); Monocytes % (auto) 5.3 %; Neutrophils # (auto) 25.69 K/uL (1.4-6.5)
[2022-03-13] MEDS ORDERED: PIPERACILLIN/TAZOBACTAM 2.25 GM in DEXTROSE 5% 100 ML IV SCH (08:30)
[2022-03-13] MEDS ORDERED: PIPERACILLIN/TAZOBACTAM 3.375 GM in DEXTROSE 5% 100 ML IV SCH (08:45)
--- NOTE | 2022-03-13 09:34 | XRay Report ---
XR chest 1V portable CLINICAL HISTORY: weakness COMPARISON STUDY: No previous studies for comparison. FINDINGS: Lung volumes are normal. There is possible left lower lung retrocardiac opacity. There is n o pneumothorax or pleural effusion. Cardiac size is normal. Mediastinal contours are normal. There is no evidence for pulmonary edema. IMPRESSION: Possible left lower lung retrocardiac opacity. This could reflect pneumonia or atelectas is. Radiographic follow-up to ensure resolution is recommended. This finding will be called/faxed to ordering provider at time of dictation. ACT 112: Negative or not required by law. Electronically signed by: Axel Frank M.D. 03/13/2022 9:33 AM
[2022-03-13] MEDS ORDERED: cefTRIAXone SODIUM 1,000 MG in DEXTROSE 5% 50 ML IV SCH (10:00)
[2022-03-13] MEDS ORDERED: ASPIRIN 300 MG SUPP PR ONE (11:04)
[2022-03-13] MEDS ORDERED: Heparin IV Adult Wt-Based Standard *NO* Bolus Protocol IV ONE (11:04)
[2022-03-13 11:14] LABS: BUN Creatinine Ratio 29.8 (10-20); Creatinine Clr Calc Pharmacy 23.1 ml/min; Est GFR (African American) 24.6 ml/min; Est GFR (Non-African American) 21.2 ml/min; Potassium 3.4 mmol/L (3.5-5.1)
[2022-03-13] MEDS ORDERED: Heparin IV Adult Wt-Based Standard *NO* Bolus Protocol IV SCH (11:15)
[2022-03-13] MEDS ORDERED: HEPARIN SODIUM/DEXTROSE 25,000 UNITS/500 ML BAG IV SCH (11:30)
[2022-03-13 12:50] LABS: Partial Thromboplastin Ratio 0.9; Partial Thromboplastin Time 25.1 Seconds (21.0-31.0)
--- NOTE | 2022-03-13 13:29 | Communication Note ---
Date of Service: March 13, 2022 Seen at bedside this morning. Patient has very advanced dementia, for which reason he is unable to give any meaningful history or review of systems. Is relatively hypotensive, mildly tachycardic. Exam significant for groaning with palpation of abdomen, specifically lower. Cardiac exam with tachycardia, regular rhythm. Respiratory normal. Plan: Elevated troponin Troponin continues to rise, though still mild Both EKGs on our system with ST depressions in leads V1, V2, V3 No baseline EKG for comparison Very likely that this represents demand ischemia, though patient unable to verbalize whether he has any chest pain/cardiac symptoms Due to above we will start heparin drip, given ASA LA, metoprolol ordered but held due to relative hypotension Continue to trend troponin Hypernatremia - Most likely acute secondary to dehydration in the setting of his advanced dementia and probable decrease in awareness of thirst - Has been improving on D5W infusion at 100cc/h - Continue for now and transition to isotonic fluid once hypernatremia resolved UTI - Meeting SIRS criteria and did have lactic acidosis but likely this was more due to tissue hypoperfusion in the setting of hypovolemia - UA c/w high probability of infection and he is unable to verbalize whether he has urinary symptoms but does groan and recoil to lower abd palpation - He does have high risk for MDR organism due to penitentiary living but as above, his clinical presentation more likely due to dehydration than complicated/high-risk infection - Will continue treatment with CTX and consider broadening if no clinical improvement CODE STATUS: Changed to DNR/DNI per [facility] documentation I personally examined the patient and verified all holloway points of history and exam, discussed case, and agree with decision making with Dr Padilla no meaningful HPI or ROS vitals noted nad heent nc at mm quite dry. lungs clear no r/r/w good effort cardio reg no r/m/g abd soft (+) lower abd/suprapubic tenderness no guarding no rebound hypernatremic dehydration - likely poor PO intake - dementia/infection/failure to thrive. hemodynamically stable - D5W, follow BMP closely - starting to slowly correct elevated troponin - demand ischemia. initially concerns on NSTEMI - but with no baseline to compare - with hindsight was almost certainly demand ischemia not NSTEMI ARF - presumed - no baseline. due to hypernatremic dehydration- is improving. continue to follow UTI - WBC and HR fit for SIRS technically sepsis on admission although may also just be due to volume contraction - continue abx/supportive care, follow cultures and serial exams DVT proph - heparin SQ Resident Activity Tracking Resident Involvement: Resident Care Provided Care Provided: Adult Hospital Medicine
--- NOTE | 2022-03-13 13:32 | XCELERA ---
[id number]
[2022-03-13] MEDS: METOPROLOL TARTRATE 1 MG/ML VIAL IV SCH ×3 (13:35→23:43)
--- NOTE | 2022-03-13 14:49 | Electrocardiogram Report ---
Test Reason : Blood Pressure : / mmHG Vent. Rate : 142 BPM Atrial Rate : 277 BPM P-R Int : 000 ms QRS Dur : 118 ms QT Int : 254 ms P-R-T Axes : 067 -83 077 degrees QTc Int : 390 ms Poor data quality, interpretation may be adversely affected Sinus tachycardia Left axis deviation Low voltage QRS Right bundle branch block Possible Anterolateral infarct , age undetermined Abnormal ECG No previous ECGs available Confirmed by Cuco Lund ([id number]) on 03/13/2022 2:49:48 PM Referred By: [facility] Confirmed By:Cuco Lund
--- NOTE | 2022-03-13 15:02 | Electrocardiogram Report ---
Test Reason : Blood Pressure : / mmHG Vent. Rate : 098 BPM Atrial Rate : 098 BPM P-R Int : 166 ms QRS Dur : 122 ms QT Int : 392 ms P-R-T Axes : 090 -68 065 degrees QTc Int : 500 ms Poor data quality, interpretation may be adversely affected Normal sinus rhythm Left axis deviation Right bundle branch block Cannot rule out Inferior infarct , age undetermined Abnormal ECG When compared with ECG of 12-MAR-2022 23:13, (unconfirmed) Borderline criteria for Anterolateral infarct are no longer Present Inferior infarct is now Present Confirmed by Cuco Lund ([id number]) on 03/13/2022 3:01:41 PM [facility] Confirmed By:Cuco Lund
[2022-03-13 15:25] LABS: Calcium 8.1 mg/dl (8.5-10.1); Creatinine Clr Calc Pharmacy 23.4 ml/min; Est GFR (Non-African American) 21.6 ml/min; Potassium 3.6 mmol/L (3.5-5.1)
[2022-03-13 18:51] LABS: BUN Creatinine Ratio 33.6 (10-20); Calcium 7.9 mg/dl (8.5-10.1); Creatinine Clr Calc Pharmacy 26.1 ml/min; Est GFR (African American) 26.9 ml/min; Est GFR (Non-African American) 23.2 ml/min; Potassium 3.5 mmol/L (3.5-5.1)
[2022-03-13 19:28] LABS: Partial Thromboplastin Time 108.7 Seconds (21.0-31.0)
[2022-03-13] MEDS: HEPARIN SOD 5,000 UNIT/0.5 ML VIAL SQ SCH (20:51)
[2022-03-13 23:41] LABS: BUN Creatinine Ratio 34.8 (10-20); Calcium 7.9 mg/dl (8.5-10.1); Creatinine Clr Calc Pharmacy 27.4 ml/min; Est GFR (African American) 28.5 ml/min; Est GFR (Non-African American) 24.6 ml/min; Potassium 3.4 mmol/L (3.5-5.1)
--- NOTE | 2022-03-14 00:53 | Billing Data ---
Date of Service March 14, 2022 Coding Level of Care Code 29931 Initial Inpt Care Lvl 3
[2022-03-14 03:22] LABS: BUN Creatinine Ratio 35.7 (10-20); Calcium 7.9 mg/dl (8.5-10.1); Creatinine Clr Calc Pharmacy 26.9 ml/min; Est GFR (African American) 27.8 ml/min; Potassium 3.3 mmol/L (3.5-5.1)
[2022-03-14] MEDS: DEXTROSE 5% 1,000 ML IV SCH ×2 (04:55→18:23)
[2022-03-14] MEDS ORDERED: HALOPERIDOL LACTATE 5 MG/ML 1 ML VIAL IM STA (06:08)
[2022-03-14] MEDS: METOPROLOL TARTRATE 1 MG/ML VIAL IV SCH ×2 (06:22→13:29)
[2022-03-14] MEDS ORDERED: Nursing to Pharmacy Communication SCH (07:15)
[2022-03-14] MEDS: POTASSIUM CHLORIDE / WTR 10 MEQ/100 ML PLCT IV SCH ×4 (07:18→10:58)
[2022-03-14 07:51] LABS: Hematocrit (blood only) 41.4 % (40.1-51.0); Mean Corpuscular Hemoglobin 26.7 pg (25.0-34.0); Mean Corpuscular Hgb Conc 31.4 g/dL (32.0-36.0); Mean Platelet Volume 11.3 fL (9.4-12.4); Platelet Count 168 K/uL (130-400); RDW Coefficient of Variation 19.1 % (11.5-14.5); RDW Standard Deviation 57.9 fL (36.4-46.3); Red Blood Count 4.87 M/uL (4.63-6.08); White Blood Count 23.75 K/ul (4.8-10.8)
[2022-03-14] MEDS ORDERED: CEFEPIME 1,000 MG in SYRINGE 0 ML IV SCH (08:00)
[2022-03-14 08:21] LABS: Basophils # (auto) 0.04 K/uL (0-0.2); Basophils % (auto) 0.2 %; Dohle Bodies Occasional; Eosinophils # (auto) 0.01 K/uL (0-0.50); Immature Granulocytes # (auto) 0.13 K/uL (0.00-0.02); Immature Granulocytes % (auto) 0.5 %; Lymphocytes # (auto) 1.43 K/uL (1.2-3.4); Monocytes # (auto) 0.85 K/uL (0.24-0.82); Monocytes % (auto) 3.6 %; Neutrophils # (auto) 21.29 K/uL (1.4-6.5); Neutrophils % (auto) 89.7 %; Toxic Vacuolation Occasional
[2022-03-14] MEDS: HEPARIN SOD 5,000 UNIT/0.5 ML VIAL SQ SCH ×2 (08:31→19:53)
[2022-03-14 08:45] LABS: BUN Creatinine Ratio 40.9 (10-20); Calcium 7.9 mg/dl (8.5-10.1); Creatinine Clr Calc Pharmacy 31.1 ml/min; Est GFR (African American) 33.2 ml/min; Est GFR (Non-African American) 28.7 ml/min; Potassium 3.1 mmol/L (3.5-5.1)
--- NOTE | 2022-03-14 09:41 | Hospitalist Progress Note ---
Date of Service March 14, 2022 Assessment & Plan (1) Hypernatremia: Plan: 71yo male with a history of Alzheimer's dementia presents with a history of weakness of unclear duration, found on admission with hypernatremia to 162. Hypernatremia/dehydration -- improving Sodium 162 on admission -- downtrending steadily, most recently at 157 In the ED, received NSS 2.5L bolus Urine osmolality > 600 -- likely dehydration related, not diabetes insipidus Free water deficit (based on admission labs) 5.5L D5W @ 80mL/hr at this time Trend BMP q4h Urinary tract infection UA notable for turbid urine with 2+ protein, 3+ blood, positive nitrites, 2+ leuk esterase, WBCs>30, 1+ bacteria, calcium oxalate crystals, and amorphous sediment Meeting SIRS criteria and did have lactic acidosis but likely this was more due to tissue hypoperfusion in the setting of hypovolemia UA c/w high probability of infection and he is unable to verbalize whether he has urinary symptoms but did groan and recoil to suprapubic palpation initially He does have high risk for MDR organism due to snf living but as above, his clinical presentation more likely due to dehydration than complicated/high-risk infection Received Zosyn x 1 in ED and then switched to CTX UCx growing Enterobacter cloacae, which is resistant to CTX -- discussed with pharmacy options for cefepime or fluoroquinolone Due to QTc of 500, will avoid quinolone and opt for cefepime 1g q24h (renal adjustment) STEPHIE -- improving, likely prerenal Creatinine on admission 3.15 (baseline unknown) IVF as above, avoid nephrotoxins, trend BMP Most recently Cr at 2.20, continuing to improve Elevated troponin On admission, hsTroponin elevated to 171.6, repeat value pending Both EKGs on our system with ST depressions in leads V1, V2, V3 -- No baseline EKG for comparison Troponin continued to rise causing concern for NSTEMI initially for which heparin drip, given ASA WA, metoprolol were ordered Trop then did downtrend, making demand ischemia much more likely heparin gtt dc'd -- continuing MTP for now as patient remains tachycardic Alzheimer's dementia Patient's home regimen unclear Bedside evaluation for dysphagia and consider formal speech consult based on how he does Consulted dietary for nutritional assessment Will continue to monitor Transaminitis On admission, elevations of AST (112), ALT (60), alk phos (107) noted Tbili wnl Consider US abdomen +/- further workup Elevated TSH On admission, TSH elevated to 5.6 Unclear if this represents hypothyroidism or if TSH is elevated as an acute phase reactant Recommend repeat check in six weeks on an outpatient basis FEN: NPO for now pending further dysphagia assessment Code status: DNR/DNI DVT ppx: SCDs Dispo: med/telemetry (2) Alzheimer disease: Admission and Anticipated Discharge Date Admission Date: March 13, 2022 Supervising Physician Co-Signing Physician Notes I personally examined the patient and verified all holloway points of history and exam, discussed case, and agree with decision making with Dr Padilla no meaningful HPI or ROS. But is more awake and groans a little bit. Daughter present at the bedsideextensive discussionsparticularly not only as it relates to his acute illness and improvement there of, but also dementia/dysphagia, and overall end-of-life type and palliative type discussions. She expresses a very good understanding of the situation, definitely is emotionally distressed about her father's decline, but notes "I have seen this coming for a while" and makes very calm rational decisions. Offered empathy and support. vitals noted nad heent nc at mmm. Breathing unlabored no accessory muscle use good effort. Abd soft (+) lower abd/suprapubic tenderness no guarding no rebound hypernatremic dehydration - likely poor PO intake which in turn was probably precipitated by physiologic stress from UTI, worsened by dementia/failure to thrive. Improving at an appropriate pace. Continue gentle D5W elevated troponin - demand ischemia. initially concerns on NSTEMI - but with no baseline to compare - with hindsight was almost certainly demand ischemia not NSTEMI ARF - presumed - no baseline. due to hypernatremic dehydration-continuing to show slow improvement UTI - WBC and HR fit for SIRS technically sepsis on admission although may also just be due to volume contraction -antibiotics changed due to culturescurrently on cefepime Dementia/aspirationafter extensive discussions with daughter outlining the overall situation with progressive dementia and how frequently that leads to aspirations, as well as choices within the confines of what can be donedaughter opts for regular diet with permissive aspiration. Her overall goal is 1 of quality of life for her father, but at this point would still like acute illnesses treated when/if they come up DVT proph - heparin SQ dispo -anticipate return to [facility] when his acute problems have improved a bit more, daughter notes that she was trying to work on getting him to a skilled facility closer to home (she lives around [place])discussed that this likely will be a move that is facilitated by her and the case management [facility], but I would ask our case making machine operator to see if by luck an easy answer would present itself. Subjective Seen at bedside. Seems more alert today, though remains non-verbal and unable to get any meaningful HPI or ROS. RN at bedside stating that per family and nursing from outside facilities, patient at baseline is mobile and tends to be combativ e/aggressive at times, which has not been the case here. Review of Systems Review of Systems: per HPI Physical Exam Physical Exam: Constitutional: no acute distress HEENT: NCAT, no conjunctival injection, MMM CV: tachycardic, regular rhythm, no murmur appreciated, extremities well- perfused, no LE edema Resp: CTABL, no wheezes/rales/rhonchi appreciated, no increased work of breathing GI: soft, nondistended, nontender, BS normoactive MSK: no gross deformities appreciated Skin: warm, dry, no rash appreciated Neuro: no focal neurologic deficit appreciated Results & Data Results & Data ([facility]) Vital Signs (Past 12 Hours) Vital Signs Temp Pulse Pulse Resp BP BP Pulse Ox 03/14/22 08:32 36.6 C 126 H 18 96/65 L 95 03/14/22 06:22 126 H 125/74 03/13/22 22:25 86 03/14/22 02:14 36.7 C 77 20 113/55 L 95 03/13/22 23:43 91 H 117/58 L 03/13/22 22:32 36.6 C 91 H 20 117/58 L 92 O2 Del Method 03/14/22 08:32 Room Air 03/14/22 06:22 03/13/22 22:25 03/14/22 02:14 Room Air 03/13/22 23:43 03/13/22 22:32 Room Air Resident Activity Tracking Resident Involvement: Resident Care Provided Care Provided: Adult Hospital Medicine
[2022-03-14 11:11] LABS: BUN Creatinine Ratio 41.5 (10-20); Calcium 7.9 mg/dl (8.5-10.1); Creatinine Clr Calc Pharmacy 34.2 ml/min; Est GFR (African American) 37.3 ml/min; Est GFR (Non-African American) 32.2 ml/min; Potassium 3.6 mmol/L (3.5-5.1)
[2022-03-14 15:02] LABS: BUN Creatinine Ratio 42.9 (10-20); Creatinine Clr Calc Pharmacy 34.6 ml/min; Est GFR (African American) 37.7 ml/min; Est GFR (Non-African American) 32.5 ml/min; Potassium 3.5 mmol/L (3.5-5.1)
--- NOTE | 2022-03-14 18:16 | Billing Data ---
Date of Service March 14, 2022 Coding Level of Care Code 70286 Subseq Hosp Care Lvl 3
--- NOTE | 2022-03-14 18:16 | Billing Data ---
Date of Service March 14, 2022 Coding Level of Care Code 04482 Subseq Hosp Care Lvl 3
[2022-03-14 18:32] LABS: BUN Creatinine Ratio 43.5 (10-20); Calcium 8.1 mg/dl (8.5-10.1); Creatinine Clr Calc Pharmacy 37.2 ml/min; Est GFR (African American) 41.2 ml/min; Est GFR (Non-African American) 35.6 ml/min; Potassium 3.5 mmol/L (3.5-5.1)
[2022-03-14] MEDS: CEFEPIME 1,000 MG in SYRINGE 0 ML IV SCH (19:52)
[2022-03-14 23:21] LABS: BUN Creatinine Ratio 42.4 (10-20); Calcium 8.4 mg/dl (8.5-10.1); Creatinine Clr Calc Pharmacy 40.3 ml/min; Est GFR (African American) 45.4 ml/min; Est GFR (Non-African American) 39.1 ml/min; Potassium 3.6 mmol/L (3.5-5.1)
[2022-03-15 02:36] LABS: Hematocrit (blood only) 43.6 % (40.1-51.0); Hemoglobin 13.8 g/dl (14.0-18.0); Mean Corpuscular Hemoglobin 27.1 pg (25.0-34.0); Mean Corpuscular Hgb Conc 31.7 g/dL (32.0-36.0); Mean Corpuscular Volume 85.5 fL (80.0-100.0); Mean Platelet Volume 11.5 fL (9.4-12.4); Platelet Count 171 K/uL (130-400); RDW Coefficient of Variation 19.3 % (11.5-14.5); RDW Standard Deviation 58.4 fL (36.4-46.3); White Blood Count 17.17 K/ul (4.8-10.8)
[2022-03-15 02:52] LABS: Basophils # (auto) 0.04 K/uL (0-0.2); Basophils % (auto) 0.2 %; Dohle Bodies 1+; Echinocytes 1+; Eosinophils # (auto) 0.01 K/uL (0-0.50); Eosinophils % (auto) 0.1 %; Immature Granulocytes # (auto) 0.05 K/uL (0.00-0.02); Immature Granulocytes % (auto) 0.3 %; Lymphocytes # (auto) 1.04 K/uL (1.2-3.4); Lymphocytes % (auto) 6.1 %; Monocytes # (auto) 0.66 K/uL (0.24-0.82); Monocytes % (auto) 3.8 %; Neutrophils # (auto) 15.37 K/uL (1.4-6.5); Neutrophils % (auto) 89.5 %; Ovalocytes 1+; Polychromasia 1+
[2022-03-15 02:57] LABS: BUN Creatinine Ratio 39.3 (10-20); Calcium 8.3 mg/dl (8.5-10.1); Est GFR (African American) 47.7 ml/min; Est GFR (Non-African American) 41.2 ml/min; Potassium 3.7 mmol/L (3.5-5.1)
[2022-03-15] MEDS: DEXTROSE 5% 1,000 ML IV SCH (06:07)
[2022-03-15 06:39] LABS: BUN Creatinine Ratio 43.2 (10-20); Creatinine Clr Calc Pharmacy 45.9 ml/min; Est GFR (African American) 54.5 ml/min; Potassium 3.5 mmol/L (3.5-5.1)
--- NOTE | 2022-03-15 08:02 | Hospitalist Progress Note ---
Date of Service March 15, 2022 Assessment & Plan (1) Hypernatremia: Plan: 71yo male with a history of Alzheimer's dementia presents with a history of weakness of unclear duration, found on admission with hypernatremia to 162. Hypernatremia/dehydration -- improving Sodium 162 on admission -- downtrending steadily, most recently at 154 In the ED, received NSS 2.5L bolus Urine osmolality > 600 -- likely dehydration related, not diabetes insipidus Free water deficit (based on admission labs) 5.5L D5W @ 80mL/hr at this time Trend BMP q4h Urinary tract infection UA notable for turbid urine with 2+ protein, 3+ blood, positive nitrites, 2+ leuk esterase, WBCs>30, 1+ bacteria, calcium oxalate crystals, and amorphous sediment Meeting SIRS criteria and did have lactic acidosis but likely this was more due to tissue hypoperfusion in the setting of hypovolemia UA c/w high probability of infection and he is unable to verbalize whether he has urinary symptoms but did groan and recoil to suprapubic palpation initially He does have high risk for MDR organism due to longterm living but as above, his clinical presentation more likely due to dehydration than complicated/high-risk infection Received Zosyn x 1 in ED and then switched to CTX UCx growing Enterobacter cloacae, which is resistant to CTX -- discussed with pharmacy options for cefepime or fluoroquinolone Due to QTc of 500, will avoid quinolone and opt for cefepime 1g q12h Day 2 of cefepime today STEPHIE -- improving, likely prerenal Creatinine on admission 3.15 (baseline unknown) IVF as above, avoid nephrotoxins, trend BMP Most recently Cr at 2.20, continuing to improve Elevated troponin On admission, hsTroponin elevated to 171.6, repeat value pending Both EKGs on our system with ST depressions in leads V1, V2, V3 -- No baseline EKG for comparison Troponin continued to rise causing concern for NSTEMI initially for which he janessa drip, given ASA NC, metoprolol were ordered Trop then did downtrend, making demand ischemia much more likely heparin gtt dc'd -- continuing MTP for now as patient remains tachycardic Alzheimer's dementia/aspiration Patient's home regimen unclear Speech therapy consulted with findings of consistent aspiration discussion held with daughter about overall situation and patient's aspiration risk, daughter opting for regular diet with permissive aspiration Her overall goal is quality of life but would still like acute illnesses treated when/if they come up Transaminitis On admission, elevations of AST (112), ALT (60), alk phos (107) noted Tbili wnl Consider US abdomen +/- further workup Elevated TSH On admission, TSH elevated to 5.6 Unclear if this represents hypothyroidism or if TSH is elevated as an acute phase reactant Recommend repeat check in six weeks on an outpatient basis FEN: NPO for now pending further dysphagia assessment Code status: DNR/DNI DVT ppx: Heparin SQ Dispo: med/telemetry, anticipate return to [facility] when acute problems resolved (2) Alzheimer disease: Admission and Anticipated Discharge Date Admission Date: March 13, 2022 Supervising Physician Co-Signing Physician Notes I personally examined the patient and verified all holloway points of history and exam, discussed case, and agree with decision making with Dr Padilla no meaningful HPI or ROS. did have new O2 requirement and low grade temps vitals noted nad heent nc at mmm. Breathing unlabored no accessory muscle use good effort, faint rales base left good air entry no rhonchi no wheezes no accessory muscles.. Abd soft no lower abdominal tenderness today hypernatremic dehydration - likely poor PO intake which in turn was probably precipitated by physiologic stress from UTI, worsened by dementia/failure to thrive. Improving at an overall appropriate pace. Continue gentle D5W and follow closely Fevers and hypoxiaI wonder if he aspiratedchecked chest x-ray CRP and Pro- Calbecause it is a little bit difficult to tell if he still just having fevers from already known illness and the hypoxia is atelectasisbut on vitals he does look worse, while in the bed he actually looks a bit betteris a late addendum chest x-ray does seem to have a bit of basilar infiltrate and looks overall more coarse than previous, CRP of 20MRSA nares negative, but will change cefepime over to Zosyn elevated troponin - demand ischemia. initially concerns on NSTEMI - but with no baseline to compare - with hindsight was almost certainly demand ischemia not NSTEMI ARF - presumed - no baseline. appears to have leveled out UTI - WBC and HR fit for SIRS technically sepsis on admission although may also just be due to volume contraction -antibiotics changed due to culturessee above - zosyn Dementia/aspirationafter extensive discussions with daughter outlining the overall situation with progressive dementia and how frequently that leads to aspirations, as well as choices within the confines of what can be donedaughter opts for regular diet with permissive aspiration. Her overall goal is 1 of quality of life for her father, but at this point would still like acute illnesses treated when/if they come up DVT proph - heparin SQ dispo -anticipate return to [facility] when his acute problems have improved a bit more, daughter notes that she was trying to work on getting him to a skilled facility closer to home (she lives around [place])discussed that this likely will be a move that is facilitated by her and the case management [facility], but I would ask our block and case maker to see if by luck an easy answer would present itself. Subjective Seen at bedside. Remains relatively alert but non-verbal. No significant ROS able to be obtained. Review of Systems Review of Systems: per HPI Physical Exam Physical Exam: Constitutional: no acute distress HEENT: NCAT, no conjunctival injection, MMM CV: tachycardic, regular rhythm, no murmur appreciated, extremities well- perfused, no LE edema Resp: CTABL, no wheezes/rales/rhonchi appreciated, no increased work of breathing GI: soft, nondistended, nontender, BS normoactive MSK: no gross deformities appreciated Skin: warm, dry, no rash appreciated Neuro: no focal neurologic deficit appreciated Results & Data Results & Data ([facility]) Vital Signs (Past 12 Hours) Vital Signs Temp Pulse Pulse Resp BP Pulse Ox O2 Del Method 03/15/22 07:31 101 H 03/15/22 03:45 36.4 C L 98 H 18 127/68 93 Nasal Cannula 03/14/22 22:25 103 H 03/14/22 23:03 92 Nasal Cannula 03/14/22 23:01 37.1 C 110 H 18 119/68 86 L Room Air O2 Flow Rate 03/15/22 07:31 03/15/22 03:45 4 03/14/22 22:25 03/14/22 23:03 4 03/14/22 23:01 Resident Activity Tracking Resident Involvement: Resident Care Provided Care Provided: Adult Hospital Medicine
[2022-03-15] MEDS: CEFEPIME 1,000 MG in SYRINGE 0 ML IV SCH (08:11)
[2022-03-15] MEDS: HEPARIN SOD 5,000 UNIT/0.5 ML VIAL SQ SCH ×2 (08:12→20:55)
[2022-03-15 09:26] LABS: BUN Creatinine Ratio 40.9 (10-20); Calcium 7.9 mg/dl (8.5-10.1); Creatinine Clr Calc Pharmacy 48.9 ml/min; Est GFR (African American) 58.9 ml/min; Est GFR (Non-African American) 50.8 ml/min
[2022-03-15] MEDS: ACETAMINOPHEN 1,000 MG/100 ML VIAL IV PRN (12:44)
[2022-03-15 13:55] LABS: BUN Creatinine Ratio 39.9 (10-20); Calcium 7.8 mg/dl (8.5-10.1); Creatinine Clr Calc Pharmacy 48.6 ml/min; Est GFR (African American) 58.4 ml/min; Est GFR (Non-African American) 50.4 ml/min; Potassium 3.1 mmol/L (3.5-5.1)
[2022-03-15 17:15] LABS: Calcium 7.9 mg/dl (8.5-10.1); Creatinine Clr Calc Pharmacy 47.5 ml/min; Est GFR (African American) 56.9 ml/min; Est GFR (Non-African American) 49.1 ml/min; Potassium 3.2 mmol/L (3.5-5.1)
--- NOTE | 2022-03-15 19:21 | Billing Data ---
Date of Service March 15, 2022 Coding Level of Care Code 22188 Subseq Hosp Care Lvl 3
--- NOTE | 2022-03-15 19:21 | Billing Data ---
Date of Service March 15, 2022 Coding Level of Care Code 61865 Subseq Hosp Care Lvl 3
[2022-03-15] MEDS ORDERED: PIPERACILLIN/TAZOBACTAM 3.375 GM in DEXTROSE 5% 100 ML IV ONE (19:45)
[2022-03-15 20:06] LABS: BUN Creatinine Ratio 39.7 (10-20); Calcium 8.2 mg/dl (8.5-10.1); Creatinine Clr Calc Pharmacy 51.1 ml/min; Est GFR (African American) 62.2 ml/min; Est GFR (Non-African American) 53.6 ml/min; Potassium 3.5 mmol/L (3.5-5.1)
--- NOTE | 2022-03-15 21:21 | XRay Report ---
TWO VIEW CHEST CLINICAL HISTORY: Fever and hypoxia. FINDINGS: AP and lateral chest radiographs are compared to study dated 03/12/2022. The cardiomediastin al silhouette is top normal for projection. There is pulmonary vascular congestion. There are calcifi ed mediastinal nodes. Airspace opacities are seen at the left lung base. There are scattered calcifie d granulomas. No large pleural effusion or pneumothorax is identified. The skeletal structures are os teopenic. The bony thorax appears intact. IMPRESSION: 1. Pulmonary vascular congestion is new from 03/12/2022. 2. Left basilar opacities are again noted. This could represent atelectasis versus an infectious/infl ammatory pneumonitis. Clinical correlation will be required. Radiographic follow-up to resolution is recommended. ACT 112: Negative or not required by law. Electronically signed by: Jensen Rankin M.D. 03/15/2022 9:20 PM
[2022-03-16 00:57] LABS: BUN Creatinine Ratio 38.4 (10-20); Calcium 7.9 mg/dl (8.5-10.1); Creatinine Clr Calc Pharmacy 53.6 ml/min; Est GFR (African American) 65.8 ml/min; Est GFR (Non-African American) 56.8 ml/min; Potassium 2.9 mmol/L (3.5-5.1)
[2022-03-16] MEDS: PIPERACILLIN/TAZOBACTAM 3.375 GM in DEXTROSE 5% 100 ML IV SCH ×3 (01:50→18:25)
[2022-03-16] MEDS: POTASSIUM CHLORIDE / WTR 10 MEQ/100 ML PLCT IV SCH ×4 (01:51→05:05)
[2022-03-16 09:01] LABS: BUN Creatinine Ratio 35.9 (10-20); Creatinine Clr Calc Pharmacy 52.1 ml/min; Est GFR (African American) 63.9 ml/min; Est GFR (Non-African American) 55.2 ml/min; Potassium 3.5 mmol/L (3.5-5.1)
[2022-03-16] MEDS: HEPARIN SOD 5,000 UNIT/0.5 ML VIAL SQ SCH ×2 (10:41→22:25)
--- NOTE | 2022-03-16 13:43 | Hospitalist Progress Note ---
Date of Service March 16, 2022 Assessment & Plan (1) Hypernatremia: Plan: 71yo male with a history of Alzheimer's dementia presents with a history of weakness of unclear duration, found on admission with hypernatremia to 162. Hypernatremia/dehydration -- improving Sodium 162 on admission -- downtrending steadily, most recently at 153 In the ED, received NSS 2.5L bolus Urine osmolality > 600 -- likely dehydration related, not diabetes insipidus Free water deficit (based on admission labs) 5.5L D5W @ 100mL/hr at this time Trend BMP q4h Urinary tract infection UA notable for turbid urine with 2+ protein, 3+ blood, positive nitrites, 2+ leuk esterase, WBCs>30, 1+ bacteria, calcium oxalate crystals, and amorphous sediment Meeting SIRS criteria and did have lactic acidosis but likely this was more due to tissue hypoperfusion in the setting of hypovolemia UA c/w high probability of infection and he is unable to verbalize whether he has urinary symptoms but did groan and recoil to suprapubic palpation initially He does have high risk for MDR organism due to long term living but as above, his clinical presentation more likely due to dehydration than complicated/high-risk infection Received Zosyn x 1 in ED and then switched to CTX UCx growing Enterobacter cloacae, which is resistant to CTX -- discussed with pharmacy options for cefepime or fluoroquinolone Due to QTc of 500, will avoid quinolone and opt for cefepime 1g q12h Day 3 of cefepime today STEPHIE -- improving, likely prerenal Creatinine on admission 3.15 (baseline unknown) IVF as above, avoid nephrotoxins, trend BMP Most recently Cr at 1.28, continuing to improve Elevated troponin On admission, hsTroponin elevated to 171.6, repeat value pending Both EKGs on our system with ST depressions in leads V1, V2, V3 -- No baseline EKG for comparison Troponin continued to rise causing concern for NSTEMI initially for which heparin drip, given ASA AR, metoprolol were ordered Trop then did downtrend, making demand ischemia much more likely heparin gtt dc'd -- continuing MTP for now as patient remains tachycardic Alzheimer's dementia/aspiration Patient's home regimen unclear Speech therapy consulted with findings of consistent aspiration discussion held with daughter about overall situation and patient's aspiration risk, daughter opting for regular diet with permissive aspiration Her overall goal is quality of life but would still like acute illnesses treated when/if they come up Transaminitis On admission, elevations of AST (112), ALT (60), alk phos (107) noted Tbili wnl Consider US abdomen +/- further workup Elevated TSH On admission, TSH elevated to 5.6 Unclear if this represents hypothyroidism or if TSH is elevated as an acute phase reactant Recommend repeat check in six weeks on an outpatient basis FEN:. Diet ordered Code status: DNR/DNI DVT ppx: Heparin SQ Dispo: med/telemetry, anticipate return to [facility] when acute problems resolved (2) Alzheimer disease: Admission and Anticipated Discharge Date Admission Date: March 13, 2022 Supervising Physician Co-Signing Physician Notes I personally examined the patient and verified all holloway points of history and exam, discussed case, and agree with decision making with Dr Padilla no meaningful HPI or ROS. no new problems per nursing vitals noted nad heent nc at mmm. Breathing unlabored no accessory muscle use good effort, more pronounced rales base left good air entry no rhonchi no wheezes no accessory muscles.. hypernatremic dehydration - likely poor PO intake which in turn was probably precipitated by physiologic stress from UTI, worsened by dementia/failure to thrive. Improving at an overall appropriate pace. Continue gentle D5W, titrate, and follow closely Fevers and hypoxiamost consistent with aspiration given the evolution of his physical exam. Fortunately everything has stabilized. Changed to Zosyn yesterdayseems to be improving. In my discussions with the daughter a few days ago as it relates to his dysphagia from dementia, she was in favor of permissive aspiration, but treating events when/if they occurred elevated troponin - demand ischemia. initially concerns on NSTEMI - but with no baseline to compare - with hindsight was almost certainly demand ischemia not NSTEMI ARF - presumed - no baseline. appears to have leveled out at a reasonable baseline UTI - WBC and HR fit for SIRS technically sepsis on admission although may also just be due to volume contraction -antibiotics changed due to culturessee above -continue zosyn Dementia/aspirationafter extensive discussions with daughter outlining the overall situation with progressive dementia and how frequently that leads to aspirations, as well as choices within the confines of what can be donedaughter opts for regular diet with permissive aspiration. Her overall goal is of quality of life for her father, but at this point would still like acute illnesses treated when/if they come up DVT proph - heparin SQ dispo -anticipate return to [facility] when his acute problems have improved a bit more, daughter notes that she was trying to work on getting him to a skilled facility closer to home (she lives around [place])discussed that this likely will be a move that is facilitated by her and the case management [facility], but I would ask our piano case maker to see if by luck an easy answer would present itself. Subjective Patient seen at bedside this morning. No acute events reported overnight. Patient is alert but nonverbal this morning. Therefore no meaningful or new HPI or review of systems at this time. Review of Systems Review of Systems: Unobtainable due to cognitive status Physical Exam Constitutional: WD/WN, vitals as above + thin and + frail appearing Eyes: + anicteric sclerae Neck: trachea midline, no thyromegaly Respiratory: normal respiratory effort, lungs clear to auscultation Cardiovascular: Rate/Rhythm: regular rate and regular rhythm Heart Sounds: + murmur Gastrointestinal (Abdomen): normal bowel sounds, soft, nontender, no hepatosplenomegaly Musculoskeletal: Head/Neck/Chest: normocephalic and head atraumatic Skin: no rashes, warm and dry Neurologic: moves all extremities Psychiatric: Orientation: alert and cooperative Results & Data Results & Data ([facility]) Vital Signs (Past 12 Hours) Vital Signs Temp Pulse Pulse Resp BP Pulse Ox O2 Del Method 03/16/22 11:27 37.2 C 76 16 136/71 98 Nasal Cannula 03/16/22 08:00 Nasal Cannula 03/16/22 07:16 108 H 03/16/22 04:08 36.6 C 105 H 18 143/76 H 92 Nasal Cannula O2 Flow Rate 03/16/22 11:27 2 03/16/22 08:00 2 03/16/22 07:16 03/16/22 04:08 2
[2022-03-16] MEDS: ACETAMINOPHEN 1,000 MG/100 ML VIAL IV PRN (15:40)
[2022-03-16] MEDS: DEXTROSE 5% 1,000 ML IV SCH (15:45)
--- NOTE | 2022-03-16 17:42 | Billing Data ---
Date of Service March 16, 2022 Coding Level of Care Code 11333 Subseq Hosp Care Lvl 3
--- NOTE | 2022-03-16 17:42 | Billing Data ---
Date of Service March 16, 2022 Coding Level of Care Code 25413 Subseq Hosp Care Lvl 3
[2022-03-17] MEDS: PIPERACILLIN/TAZOBACTAM 3.375 GM in DEXTROSE 5% 100 ML IV SCH ×3 (02:06→17:01)
[2022-03-17] MEDS: DEXTROSE 5% 1,000 ML IV SCH ×3 (02:06→22:07)
[2022-03-17] MEDS: ACETAMINOPHEN 1,000 MG/100 ML VIAL IV PRN ×2 (02:07→11:34)
--- NOTE | 2022-03-17 07:46 | Hospitalist Progress Note ---
Date of Service March 17, 2022 Assessment & Plan (1) Hypernatremia: Plan: 71yo male with a history of Alzheimer's dementia presents with a history of weakness of unclear duration, found on admission with hypernatremia to 162. Hypernatremia/dehydration -- improving Sodium 162 on admission -- downtrending steadily, most recently at 152 In the ED, received NSS 2.5L bolus Urine osmolality > 600 -- likely dehydration related, not diabetes insipidus Free water deficit (based on admission labs) 5.5L D5W @ 100mL/hr at this time Trend BMP q24h Hypoxia -Increasing oxygen demand to the point of requiring oxygen mask now on 6 L -Suspect it could be due to aspiration -Currently on Zosyn which should be adequate coverage -If continues to get worse, consider getting chest x-ray Urinary tract infection UA notable for turbid urine with 2+ protein, 3+ blood, positive nitrites, 2+ leuk esterase, WBCs>30, 1+ bacteria, calcium oxalate crystals, and amorphous sediment Meeting SIRS criteria and did have lactic acidosis but likely this was more due to tissue hypoperfusion in the setting of hypovolemia UA c/w high probability of infection and he is unable to verbalize whether he has urinary symptoms but did groan and recoil to suprapubic palpation initially He does have high risk for MDR organism due to detention living but as above, his clinical presentation more likely due to dehydration than complicated/high-risk infection Received Zosyn x 1 in ED and then switched to CTX UCx growing Enterobacter cloacae, which is resistant to CTX Due to QTc of 500, will avoid quinolone and changed cefepime to zosyn on 03/16 Day 4 of antibiotics today STEPHIE -- resolved, likely prerenal Creatinine on admission 3.15 (baseline unknown) IVF as above, avoid nephrotoxins, trend BMP Most recently Cr at 1.09, continuing to improve Elevated troponin- consider resolved On admission, hsTroponin elevated to 171.6, repeat value pending Both EKGs on our system with ST depressions in leads V1, V2, V3 -- No baseline EKG for comparison Troponin continued to rise causing concern for NSTEMI initially for which heparin drip, given ASA NE, metoprolol were ordered Trop then did downtrend, making demand ischemia much more likely heparin gtt dc'd -- continuing MTP for now as patient remains tachycardic Alzheimer's dementia/aspiration Patient's home regimen unclear Speech therapy consulted with findings of consistent aspiration discussion held with daughter about overall situation and patient's aspiration risk, daughter opting for regular diet with permissive aspiration Her overall goal is quality of life but would still like acute illnesses t reated when/if they come up Transaminitis On admission, elevations of AST (112), ALT (60), alk phos (107) noted Tbili wnl Consider US abdomen +/- further workup Elevated TSH On admission, TSH elevated to 5.6 Unclear if this represents hypothyroidism or if TSH is elevated as an acute phase reactant Recommend repeat check in six weeks on an outpatient basis FEN:. Diet ordered Code status: DNR/DNI DVT ppx: Heparin SQ Dispo: med/telemetry, anticipate return to [facility] when acute problems resolved (2) Alzheimer disease: Admission and Anticipated Discharge Date Admission Date: March 13, 2022 Supervising Physician Co-Signing Physician Notes I personally examined the patient and verified all holloway points of history and exam, discussed case, and agree with decision making with Dr Roberts no meaningful HPI or ROS. no new problems per nursing long time at the bedside, he is comfortable during that time. [employer] TRIMMER noted that he was at times restless but never really in much distress. vitals noted nad heent nc at mmm. Lungs are actually clear to auscultation bilaterally no rales rhonchi or wheezes good effort. Abdomen shows mild lower abdominal tenderness no guarding rebound or rigidity. hypernatremic dehydration - likely poor PO intake which in turn was probably precipitated by physiologic stress from UTI, worsened by dementia/failure to thrive. Improving at an overall appropriate pace. Slowly improving, titrate D5W, follow basic metabolic panel. Fevers and hypoxiamost consistent with aspiration given the evolution of his physical exam. Fortunately everything has stabilized. He had a slight increase in his white count today, but otherwise actually looks and examines much better. Continue with current course and follow closely elevated troponin - demand ischemia. initially concerns on NSTEMI - but with no baseline to compare - with hindsight was almost certainly demand ischemia not NSTEMI ARF - presumed - no baseline. Actually now improved to 1.09 UTI - WBC and HR fit for SIRS technically sepsis on admission although may also just be due to volume contraction -antibiotics changed due to culturessee above -continue zosyn as above Dementia/aspirationafter extensive discussions with daughter outlining the overall situation with progressive dementia and how frequently that leads to aspirations, as well as choices within the confines of what can be donedaughter opts for regular diet with permissive aspiration. Her overall goal is of quality of life for her father, but at this point would still like acute illnesses treated when/if they come up DVT proph - heparin SQ dispo -anticipate return to [facility] when his acute problems have improved a bit more, daughter notes that she was trying to work on getting him to a skilled facility closer to home (she lives around [place])discussed that this likely will be a move that is facilitated by her and the case management [facility], but I would ask our human services case manager to see if by luck an easy answer would present itself. Subjective Patient seen at bedside this morning. No acute events reported overnight. Unfortunately seems to be having higher oxygen demand now requiring oxygen mask. Not speaking to me currently due to cognition. No new or meaningful HPI at this time. Unfortunately will not even tell me if he has any pain or discomfort anywhere. Review of Systems Review of Systems: Unobtainable due to cognitive status Physical Exam Constitutional: WD/WN, vitals as above + thin and + frail appearing Eyes: + anicteric sclerae Neck: trachea midline, no thyromegaly Respiratory: normal respiratory effort, lungs clear to auscultation Cardiovascular: Rate/Rhythm: regular rate and regular rhythm Heart Sounds: + murmur Gastrointestinal (Abdomen): normal bowel sounds, soft, nontender, no hepatosplenomegaly Musculoskeletal: Head/Neck/Chest: normocephalic and head atraumatic Skin: no rashes, warm and dry Neurologic: moves all extremities Psychiatric: Orientation: alert Results & Data Results & Data ([facility]) Vital Signs (Past 12 Hours) Vital Signs Temp Pulse Pulse Pulse Resp BP Pulse Ox 03/17/22 07:41 88 03/17/22 06:21 36.5 C 98 H 20 153/76 H 93 03/17/22 02:15 105 H 89 L 03/17/22 03:05 110 H 91 03/17/22 01:20 103 H 03/16/22 23:51 03/16/22 23:46 100 H 27 H 89 L 03/16/22 22:51 36.7 C 101 H 22 145/79 H 86 L 03/16/22 20:21 88 L O2 Del Method O2 Flow Rate 03/17/22 07:41 03/17/22 06:21 Oxymask 4 03/17/22 02:15 Oxymask 8 03/17/22 03:05 Oxymask 6 03/17/22 01:20 03/16/22 23:51 Oxymask 12 03/16/22 23:46 Oxymask 12 03/16/22 22:51 Oxymask 12 03/16/22 20:21 Oxymask 10
[2022-03-17] MEDS: HEPARIN SOD 5,000 UNIT/0.5 ML VIAL SQ SCH ×2 (08:05→20:57)
[2022-03-17 08:08] LABS: Hematocrit (blood only) 38.1 % (40.1-51.0); Hemoglobin 12.2 g/dl (14.0-18.0); Mean Corpuscular Hemoglobin 26.9 pg (25.0-34.0); Mean Corpuscular Volume 83.9 fL (80.0-100.0); Platelet Count 128 K/uL (130-400); RDW Coefficient of Variation 18.7 % (11.5-14.5); RDW Standard Deviation 56.4 fL (36.4-46.3); Red Blood Count 4.54 M/uL (4.63-6.08); White Blood Count 20.77 K/ul (4.8-10.8)
[2022-03-17 08:51] LABS: BUN Creatinine Ratio 37.6 (10-20); Calcium 7.9 mg/dl (8.5-10.1); Est GFR (African American) 77.6 ml/min
[2022-03-17] MEDS: POTASSIUM CHLORIDE / WTR 10 MEQ/100 ML PLCT IV SCH ×4 (12:50→15:48)
--- NOTE | 2022-03-17 19:09 | Billing Data ---
Date of Service March 17, 2022 Coding Level of Care Code 86383 Subseq Hosp Care Lvl 3
[2022-03-18] MEDS: PIPERACILLIN/TAZOBACTAM 3.375 GM in DEXTROSE 5% 100 ML IV SCH ×3 (01:54→17:23)
[2022-03-18 07:22] LABS: Hematocrit (blood only) 35.6 % (40.1-51.0); Hemoglobin 11.7 g/dl (14.0-18.0); Mean Corpuscular Hemoglobin 27.3 pg (25.0-34.0); Mean Corpuscular Hgb Conc 32.9 g/dL (32.0-36.0); Mean Corpuscular Volume 83.2 fL (80.0-100.0); Mean Platelet Volume 12.1 fL (9.4-12.4); Platelet Count 127 K/uL (130-400); RDW Coefficient of Variation 18.6 % (11.5-14.5); RDW Standard Deviation 55.5 fL (36.4-46.3); Red Blood Count 4.28 M/uL (4.63-6.08); White Blood Count 21.28 K/ul (4.8-10.8)
[2022-03-18 07:29] LABS: Basophils % (auto) 0.5 %; Dohle Bodies 1+; Echinocytes 2+; Eosinophils % (auto) 0.9 %; Immature Granulocytes # (auto) 0.16 K/uL (0.00-0.02); Immature Granulocytes % (auto) 0.8 %; Lymphocytes # (auto) 0.82 K/uL (1.2-3.4); Lymphocytes % (auto) 3.9 %; Monocytes # (auto) 0.66 K/uL (0.24-0.82); Monocytes % (auto) 3.1 %; Neutrophils # (auto) 19.34 K/uL (1.4-6.5); Neutrophils % (auto) 90.8 %; Toxic Granulation 1+
[2022-03-18 07:31] LABS: Calcium 7.7 mg/dl (8.5-10.1); Creatinine Clr Calc Pharmacy 65.1 ml/min; Est GFR (African American) 83.1 ml/min; Est GFR (Non-African American) 71.7 ml/min
[2022-03-18] MEDS: DEXTROSE 5% 1,000 ML IV SCH ×2 (08:05→17:23)
--- NOTE | 2022-03-18 08:55 | Hospitalist Progress Note ---
Date of Service March 18, 2022 Assessment & Plan (1) Hypernatremia: Plan: 71yo male with a history of Alzheimer's dementia presents with a history of weakness of unclear duration, found on admission with hypernatremia to 162. Hypernatremia/dehydration -- improving Sodium 162 on admission -- downtrending steadily, most recently at 148 In the ED, received NSS 2.5L bolus Urine osmolality > 600 -- likely dehydration related, not diabetes insipidus Free water deficit (based on admission labs) 5.5L D5W @ 100mL/hr at this time Trend BMP q24h Alzheimer's dementia/aspiration Patient's home regimen unclear Speech therapy consulted with findings of consistent aspiration discussion held with daughter about overall situation and patient's aspiration risk, daughter opting for regular diet with permissive aspiration Her overall goal is quality of life but would still like acute illnesses treated when/if they come up -Unfortunately, patient does not seem to be clinically improving and p.o. intake is very poor. We will further discuss goals of care with patient's family later today. -Patient would likely benefit in the terms of comfort if you are put on palliative/hospice as his prognosis is poor Hypokalemia -Secondary as a result of poor p.o. intake in addition to D5W -Potassium at 3.0 this morning, replete with 4, 10 mill equivalent K riders -Recheck BMP in the morning -As hypernatremia improves, switch to lactated Ringer's over D5W Hypoxia -Increasing oxygen demand to the point of requiring oxygen mask now on 6 L, however, it is simply because he is a mouth breather and the nasal cannula was not providing him much benefit -Suspect it could be due to aspiration -Currently on Zosyn which should be adequate coverage -If continues to get worse, consider getting chest x-ray Urinary tract infection UA notable for turbid urine with 2+ protein, 3+ blood, positive nitrites, 2+ leuk esterase, WBCs>30, 1+ bacteria, calcium oxalate crystals, and amorphous sediment Meeting SIRS criteria and did have lactic acidosis but likely this was more due to tissue hypoperfusion in the setting of hypovolemia UA c/w high probability of infection and he is unable to verbalize whether he has urinary symptoms but did groan and recoil to suprapubic palpation initially He does have high risk for MDR organism due to care home living but as above, his clinical presentation more likely due to dehydration than complicated/high-risk infection Received Zosyn x 1 in ED and then switched to CTX UCx growing Enterobacter cloacae, which is resistant to CTX Due to QTc of 500, will avoid quinolone and changed cefepime to zosyn on 03/16 Day 5 of antibiotics today Elevated TSH On admission, TSH elevated to 5.6 Unclear if this represents hypothyroidism or if TSH is elevated as an acute phase reactant Recommend repeat check in six weeks on an outpatient basis STEPHIE -- resolved, likely prerenal Creatinine on admission 3.15 (baseline unknown) IVF as above, avoid nephrotoxins, trend BMP Most recently Cr at 1.03, continuing to improve Elevated troponin- resolved On admission, hsTroponin elevated to 171.6, peaked at 230 and began downtrending Both EKGs on our system with ST depressions in leads V1, V2, V3 -- No baseline EKG for comparison Troponin continued to rise causing concern for NSTEMI initially for which heparin drip, given ASA ID, metoprolol were ordered Trop then did downtrend, making demand ischemia much more likely heparin gtt dc'd -- continuing MTP for now as patient remains tachycardic Transaminitis-resolved On admission, elevations of AST (112), ALT (60), alk phos (107) noted, recheck today, now within normal limits Tbili wnl FEN:. Diet ordered Code status: DNR/DNI DVT ppx: Heparin SQ Dispo: med/telemetry, anticipate return to [facility] when acute problems resolved (2) Alzheimer disease: Admission and Anticipated Discharge Date Admission Date: March 13, 2022 Supervising Physician Co-Signing Physician Notes I personally examined the patient and verified all holloway points of history and exam, discussed case, and agree with decision making with Dr Armando alaniz meaningful HPI or ROS. Daughter Gosia at the bedside. Updated extensively. Extensive discussionsee below. vitals noted nad heent nc at mmm. Breathing unlabored no accessory muscle use good effort. Skin without rashes pallor or icterus. Staring at the ceiling mostly occasionally moaning occasionally reaching nonsensically, no focused movements. hypernatremic dehydration - likely poor PO intake which in turn was probably precipitated by physiologic stress from UTI, worsened by dementia/failure to thrive. Improving at an overall appropriate pace. Slowly improving, continue D5W, follow basic metabolic panel. Fevers and hypoxiamost consistent with aspiration given the evolution of his physical exam. has overall stabilized, white count still up a little bit but nonspecific. Continue Zosyn elevated troponin - demand ischemia. initially concerns on NSTEMI - but with no baseline to compare - with hindsight was almost certainly demand ischemia not NSTEMI ARF - presumed - no baseline. Actually now improved to 1.03 UTI - WBC and HR fit for SIRS technically sepsis on admission although may also just be due to volume contraction -antibiotics changed due to culturessee above -continue zosyn as above Dementia/aspirationongoing discussions with daughtershe is very realistic, understands that right now the situation chronically more than acutely his prognosis is more concerningparticularly given that he is not waking up enough to eat. Discussed that this is a bit open endedthat he may start to wake up a little bit more and may start to become less delirious and may start to eat more, but also given the nature of deliriums, particularly given that is superimposed on what sounds to be severe dementia, he may really have this as his new normal. For now she would prefer to proceed with ongoing antibiotics and supportive care, and attempted feedings with assist, she would be comfortable with him being out of the hospital in this respectbut notes that staffing at SNF is thin enough, that she realistically feels that a move to SNF with the plan of ongoing antibiotics and supportive care would, by lack of staffing, essentially be a de facto moved to more of a comfort measures modewhich she understands he may be facing, but she is not quite ready for. For now we will keep him in the hospital, and she notes that the staffing at the transitional care unit he was at prior to SNF was better, she would be very comfortable with moving forward with that plan here. She overall is very clear that she wants quality of life and for him not to suffer, but does want to give our current issue time to see what direction he goesshe is certainly not opposed to hospice, just not quite ready to move into a fully comfort mode as of now. DVT proph - heparin SQ dispo -discussed above with case management. Subjective Patient seen at bedside this morning. No acute events reported overnight. Unfortunately patient does not seem to be improving and mentation, clinical presentation, or with amount of food to be eaten. Otherwise not able to provide any meaningful or new HPI at this time due to cognitive status. Review of Systems Review of Systems: Unobtainable due to cognitive status Physical Exam Constitutional: WD/WN, vitals as above + thin and + frail appearing Eyes: + anicteric sclerae Neck: trachea midline, no thyromegaly Respiratory: + tachypneic Auscultation: + rhonchi Cardiovascular: Rate/Rhythm: regular rate and regular rhythm Heart Sounds: + murmur Gastrointestinal (Abdomen): normal bowel sounds, soft, nontender, no hepatosplenomegaly Musculoskeletal: Head/Neck/Chest: normocephalic and head atraumatic Skin: no rashes, warm and dry Neurologic: moves all extremities Psychiatric: Orientation: alert Results & Data Results & Data ([facility]) Vital Signs (Past 12 Hours) Vital Signs Temp Pulse Pulse Pulse Resp BP Pulse Ox 03/18/22 08:03 36.8 C 110 H 18 135/65 92 03/18/22 03:23 36.6 C 105 H 18 147/65 H 93 03/17/22 22:20 103 H 03/17/22 22:02 36.8 C 118 H 22 140/56 L 98 O2 Del Method O2 Flow Rate 03/18/22 08:03 Oxymask 6 03/18/22 03:23 Oxymask 6 03/17/22 22:20 03/17/22 22:02 Oxymask 5
[2022-03-18] MEDS: HEPARIN SOD 5,000 UNIT/0.5 ML VIAL SQ SCH ×2 (10:13→20:36)
[2022-03-18] MEDS: POTASSIUM CHLORIDE / WTR 10 MEQ/100 ML PLCT IV SCH ×4 (10:14→13:34)
[2022-03-18 10:21] LABS: Albumin Level 2.3 gm/dl (3.4-5.0); Bilirubin Direct 0.1 mg/dl (0-0.2); Bilirubin,Total 0.7 mg/dl (0.2-1.0); Total Protein 5.2 gm/dl (6.0-8.3)
--- NOTE | 2022-03-18 18:07 | Billing Data ---
Date of Service March 18, 2022 Coding Level of Care Code 74168 Subseq Hosp Care Lvl 3
--- NOTE | 2022-03-18 18:08 | Billing Data ---
Date of Service March 18, 2022 Coding Level of Care Code 40880 Subseq Hosp Care Lvl 3
[2022-03-19] MEDS: PIPERACILLIN/TAZOBACTAM 3.375 GM in DEXTROSE 5% 100 ML IV SCH ×2 (02:11→10:36)
[2022-03-19] MEDS: DEXTROSE 5% 1,000 ML IV SCH (02:55)
[2022-03-19 07:03] LABS: Hematocrit (blood only) 33.1 % (40.1-51.0); Hemoglobin 10.7 g/dl (14.0-18.0); Mean Corpuscular Hemoglobin 26.8 pg (25.0-34.0); Mean Corpuscular Hgb Conc 32.3 g/dL (32.0-36.0); Mean Platelet Volume 11.4 fL (9.4-12.4); Platelet Count 125 K/uL (130-400); RDW Coefficient of Variation 18.6 % (11.5-14.5); RDW Standard Deviation 55.1 fL (36.4-46.3); Red Blood Count 3.99 M/uL (4.63-6.08); White Blood Count 18.86 K/ul (4.8-10.8)
[2022-03-19 07:24] LABS: BUN Creatinine Ratio 32.7 (10-20); Basophils # (auto) 0.08 K/uL (0-0.2); Basophils % (auto) 0.4 %; Calcium 7.5 mg/dl (8.5-10.1); Creatinine Clr Calc Pharmacy 64.5 ml/min; Dohle Bodies 2+; Echinocytes 1+; Eosinophils # (auto) 0.13 K/uL (0-0.50); Eosinophils % (auto) 0.7 %; Est GFR (African American) 82.2 ml/min; Est GFR (Non-African American) 70.9 ml/min; Immature Granulocytes # (auto) 0.22 K/uL (0.00-0.02); Immature Granulocytes % (auto) 1.2 %; Lymphocytes # (auto) 1.24 K/uL (1.2-3.4); Lymphocytes % (auto) 6.6 %; Monocytes # (auto) 0.66 K/uL (0.24-0.82); Monocytes % (auto) 3.5 %; Neutrophils # (auto) 16.53 K/uL (1.4-6.5); Neutrophils % (auto) 87.6 %; Poikilocytosis Present; Toxic Granulation 2+; Toxic Vacuolation 1+
[2022-03-19] MEDS ORDERED: LACTATED RINGER'S 1,000 ML IV SCH (08:00)
[2022-03-19] MEDS: POTASSIUM CHLORIDE / WTR 10 MEQ/100 ML PLCT IV SCH ×4 (08:15→11:52)
[2022-03-19] MEDS: HEPARIN SOD 5,000 UNIT/0.5 ML VIAL SQ SCH (08:18)
[2022-03-19] MEDS: ACETAMINOPHEN 1000 MG/100 ML IV IV PRN ×2 (12:42→20:43)
--- NOTE | 2022-03-19 13:33 | XRay Report ---
XR chest 1V portable CLINICAL HISTORY: Tachypnea, resp distress TECHNIQUE: Single frontal radiograph of the chest was obtained. Comparison: Comparison is made to chest radiograph 03/15/2022 FINDINGS: No lines and tubes are seen. The cardiomediastinal silhouette is normal. Multifocal airspace opacitie s are seen. These appear more prominent than prior exam, particularly in the right upper and lower awa ngs. No evidence of pleural effusion or pneumothorax. IMPRESSION: Interval increased prominence of multifocal airspace opacities which may represent atelectasis, pneum onia, and/or aspiration. ACT 112: Negative or not required by law. Electronically signed by: Shane Lopez M.D. 03/19/2022 1:32 PM
[2022-03-19] MEDS ORDERED: ONDANSETRON INJ 2 MG/ML 2 ML VIAL IV PRN (13:41)
[2022-03-19] MEDS ORDERED: STAT IV Infusion **Titration per Protocol STA (13:41)
[2022-03-19] MEDS ORDERED: ONDANSETRON 4 MG OD TAB SL PRN (13:41)
[2022-03-19] MEDS ORDERED: MoRPHine SULF/NSS 100 MG/100 ML BAG IV SCH (13:45)
[2022-03-19] MEDS: LORazepam 0.5 MG in SYRINGE 0.25 ML IV PRN ×2 (14:31→20:07)
--- NOTE | 2022-03-19 16:07 | Hospitalist Progress Note ---
Date of Service March 19, 2022 Assessment & Plan (1) Hypernatremia: Plan: 71yo male with a history of Alzheimer's dementia presents with a history of weakness of unclear duration, found on admission with hypernatremia to 162. Comfort measures -Unfortunately patient has not been improving and seems to be clinically deteriorating despite antibiotic therapy, fluid resuscitation, and electrolyte repletion -For this reason, prognosis was discussed with daughter who agreed that the best course of action would be comfort measures -All medical treatment was therefore discontinued and patient was placed on a morphine drip with Ativan as needed every 4 hours for agitation -Daily labs discontinued -Feed patient is hungry/able to eat otherwise IV fluids discontinued For summary of treatment in regards to medical conditions lives in the hospital please see below: Hypernatremia/dehydration -- improved Patient was initially treated with D5W and then transition to lactated Ringer's as hypernatremia improved. His hyponatremia was thought to be due to hypovolemic hyponatremia due to poor p.o. intake Alzheimer's dementia/aspiration Patient was seen by speech therapy who his findings were consistent with chronic aspiration. Patient was initially allowed permissive aspiration, however, it seems he was not able to expectorate phlegm and was not able to tolerate any form of p.o. intake which seemed to result in more aspiration. Hypoxia Secondary to aspiration pneumonia. Patient was given oxygen supplementation and was attempted to be treated with Zosyn, however, patient failed to show improvement in his breathing regardless of antibiotic therapy. Urinary tract infection Assumed given UA consistent for urinary tract infection, Zosyn for pulmonary pathology for coverage. Hypokalemia Hypokalemia was a result of poor p.o. intake while given D5W. Patient was supplemented as able and required repletion daily. Elevated TSH TSH elevated 5.6, was likely reactive given patient's current medical conditions. No medical action done. STEPHIE -- resolved, likely prerenal Patient received IV fluid which improved creatinine back to baseline and it was resolved. Elevated troponin- resolved Secondary to demand ischemia in the setting of poor p.o. intake and low blood pressure with tachycardia. Transaminitis-resolved Secondary to poor perfusion and improved given IV fluids. FEN:. Diet ordered Code status: DNR/DNI DVT ppx: DVT prophylaxis discontinued Dispo: Transferred to [facility] without telemetry with comfort measures (2) Alzheimer disease: Admission and Anticipated Discharge Date Admission Date: March 13, 2022 Supervising Physician Co-Signing Physician Notes Resident Physician Supervision Note: I independently interviewed and examined the patient and verified the holloway history and physical, reviewed labs and image studies and agree with resident Dr. Roberts findings and care plan. Subjective Patient seen at bedside this morning. No acute events reported overnight. Unfortunately, patient seems to be having more difficulty with breathing and is not alert this morning. Patient seems to have his eyes closed and breathing is relatively quick. Cannot give any meaningful or new HPI at this time. Because of his current presentation, called the daughter with regards to goals of care and she is in agreement that the best course of action will be comfort measures. Review of Systems Review of Systems: Unobtainable due to cognitive status Physical Exam Constitutional: WD/WN, vitals as above + thin and + frail appearing Eyes: + anicteric sclerae Neck: trachea midline, no thyromegaly Respiratory: normal respiratory effort, lungs clear to auscultation + tachypneic Auscultation: + rhonchi Cardiovascular: Rate/Rhythm: regular rate and regular rhythm Heart Sounds: + murmur Gastrointestinal (Abdomen): normal bowel sounds, soft, nontender, no hepatosplenomegaly Musculoskeletal: Head/Neck/Chest: normocephalic and head atraumatic Skin: no rashes, warm and dry Neurologic: moves all extremities Psychiatric: Orientation: + not alert Results & Data Results & Data ([facility]) Vital Signs (Past 12 Hours) Vital Signs Temp Pulse O2 Del Method O2 Flow Rate 03/19/22 12:42 38.5 C H 03/19/22 11:28 Oxymask 5 03/19/22 09:27 108 H
--- NOTE | 2022-03-20 06:54 | Death Pronouncement Note ---
Date of Service March 20, 2022 Pronouncement Note Admission Date Admission Date: March 13, 2022 Date and Time of Date of : 03/20/22 Time of : 06:25 Contributing Factors (1) Hypernatremia: (2) Alzheimer disease: Hospital Course Hospital Course: 71yo male with a history of Alzheimer's dementia presents with a history of weakness of unclear duration, found on admission with hypernatremia to 162. Comfort measures (started on 03/19) -Unfortunately patient has not been improving and seems to be clinically deteriorating despite antibiotic therapy, fluid resuscitation, and electrolyte repletion -For this reason, prognosis was discussed with daughter who agreed that the best course of action would be comfort measures -All medical treatment was therefore discontinued and patient was placed on a morphine drip with Ativan as needed every 4 hours for agitation -Daily labs discontinued -Feed patient is hungry/able to eat otherwise IV fluids discontinued For summary of treatment in regards to medical conditions lives in the hospital please see below: Hypernatremia/dehydration --improved Patient was initially treated with D5W and then transition to lactated Ringer's as hypernatremia improved. His hyponatremia was thought to be due to hypovolemic hyponatremia due to poor p.o. intake Alzheimer's dementia/aspiration Patient was seen by speech therapy who his findings were consistent with chronic aspiration. Patient was initially allowed permissive aspiration, however, it seems he was not able to expectorate phlegm and was not able to tolerate any form of p.o. intake which seemed to result in more aspiration. Hypoxia Secondary to aspiration pneumonia. Patient was given oxygen supplementation and was attempted to be treated with Zosyn, however, patient failed to show improvement in his breathing regardless of antibiotic therapy. Urinary tract infection Assumed given UA consistent for urinary tract infection, Zosyn for pulmonary pathology for coverage. Hypokalemia Hypokalemia was a result of poor p.o. intake while given D5W. Patient was supplemented as able and required repletion daily. Elevated TSH TSH elevated 5.6, was likely reactive given patient's current medical conditions. No medical action done. STEPHIE --resolved, likely prerenal Patient received IV fluid which improved creatinine back to baseline and it was resolved. Elevated troponin-resolved Secondary to demand ischemia in the setting of poor p.o. intake and low blood pressure with tachycardia. Transaminitis-resolved Secondary to poor perfusion and improved given IV fluids. FEN:. Diet ordered Code status: DNR/DNI DVT ppx: DVT prophylaxis discontinued Dispo: Summary Additional details: Patient was placed on comfort measures on 03/19 which included morphine drip and every 4 hour Ativan as needed. I received a message that the patient had . Upon my arrival was found the patient had no pulse at 2 different locations, negative pupillary reflex, and no breathing sounds on auscultation. Patient was pronounced at 0625. Additional Data Confirmation of : no pulse, no respirations, no heart sounds and pupils fixed and dilated Family: contacted Attending physician: Juana Au MD
--- NOTE | 2022-03-20 07:02 | Discharge Summary ---
Date of Service March 20, 2022 Admission HPI Per Admitting Provider 71yo male with a history of Alzheimer's dementia presents with a history of weakness of unclear duration. Patient is a [facility] resident. Per EMS report, patient was noted at [facility] with physical weakness upon trying to get up to go to the bathroom earlier in the day on 03/12. [facility] also noted that patient had low BP. Patient is unable to answer questions due to advanced Alzheimer's dementia and is unable to participate in ROS as a result. Upon arrival, vitals were notable for tachycardia (110-120s); BP controlled, no tachypnea, patient afebrile, spO2 91-95% on room air. Initial labs were notable for hypernatremia (162), leukocytosis (29.3), elevated BUN (89) and creatinine (3.15; no prior value available), elevated hsTroponin (171.6), elevated lactate (2.3), transaminitis (AST 112, ALT 60, AlkPhos 107), elevated total protein (8.8), and elevated TSH (5.6). UA was notable for turbid urine with 2+ protein, 3+ blood, positive nitrites, 2+ leuk esterase, WBCs>30, 1+ bacteria, calcium oxalate crystals, and amorphous sediment. Covid PCR was negative. No anemia, platelets wnl. In the ED, patient was given NSS bolus (1.5L in total), started on NSS @ 125mL/hr, and given a dose of zosyn. Principal Diagnosis Aspiration pneumonia Discharge Exam Pronouncement Exam: Pupils dilated and nonresponsive bilaterally, no heart sounds, no pulse at left radial and left carotid arteries, no breath sounds on auscultation Discharge Data Allergies Allergy/AdvReac Type Severity Reaction Status Date / Time sulfamethoxazole Allergy Unknown Verified 03/13/22 00:33 [From Bactrim] trimethoprim [From Bactrim] Allergy Unknown Verified 03/13/22 00:33 Consultations 03/13/22 02:05 ED Decision to Admit Stat Hospital Course (1) Hypernatremia: 71yo male with a history of Alzheimer's dementia presents with a history of weakness of unclear duration, found on admission with hypernatremia to 162. Comfort measures (started on 03/19/22) -Unfortunately patient has not been improving and seems to be clinically deteriorating despite antibiotic therapy, fluid resuscitation, and electrolyte repletion -For this reason, prognosis was discussed with daughter who agreed that the best course of action would be comfort measures -All medical treatment was therefore discontinued and patient was placed on a morphine drip with Ativan as needed every 4 hours for agitation -Daily labs discontinued -Unfortunately patient at 0625 on March 20, 2022. Patient's family was called Pt's family was called. For summary of treatment in regards to medical conditions lives in the hospital please see below: Hypernatremia/dehydration -- improved Patient was initially treated with D5W and then transition to lactated Ringer's as hypernatremia improved. His hyponatremia was thought to be due to hypovolem ic hyponatremia due to poor p.o. intake Alzheimer's dementia/aspiration Patient was seen by speech therapy who his findings were consistent with chronic aspiration. Patient was initially allowed permissive aspiration, however, it seems he was not able to expectorate phlegm and was not able to tolerate any form of p.o. intake which seemed to result in more aspiration. Hypokalemia Hypokalemia was a result of poor p.o. intake while given D5W. Patient was supplemented as able and required repletion daily. Hypoxia Secondary to aspiration pneumonia. Patient was given oxygen supplementation and was attempted to be treated with Zosyn, however, patient failed to show improvement in his breathing regardless of antibiotic therapy. Urinary tract infection Assumed given UA consistent for urinary tract infection, Zosyn given that also had coverage towards UTI. Elevated TSH TSH elevated 5.6, was likely reactive given patient's current medical conditions. No medical action done. STEPHIE -- resolved, likely prerenal Patient received IV fluid which improved creatinine back to baseline and it was resolved. Elevated troponin- resolved Secondary to demand ischemia in the setting of poor p.o. intake and low blood pressure with tachycardia. Transaminitis-resolved Secondary to poor perfusion and improved given IV fluids. FEN:. Diet ordered Code status: DNR/DNI DVT ppx: DVT prophylaxis discontinued Dispo: (2) Alzheimer disease: Total Time Total Time Spent Total Time Spent (In Minutes): 30 Discharge Plan Discharge Items Patient Disposition: Other Date/Time: 03/20/22 06:25
--- NOTE | 2022-03-29 05:18 | Coding Query ---
SEPSIS To promote full compliance with coding requirements relating to patient care, physician participation is requested in all cases of music education adjunct professor uncertainty. Please assist us with the question(s) below: In responding to this query, please exercise your independent professional judgement. The fact that a question is asked does not imply that any particular answer is desired or expected. We appreciate your clarification on this issue. Throughout the medical record, you have clearly documented a localized infection and your patient has clinical evidence of a generalized sepsis or severe sepsis. The term urosepsis is a nonspecific entity and is coded as an UTI. If the patient has sepsis, severe sepsis, from an urinary source or some other source, please clarify in your response below. The medical record reflects the following clinical findings: Pt admitted with UTI,aspiration pneumonia. Progress notes 03/13, 03/17 documented SIRS criteria met, more likely due to tissue hypoperfusion and/or volume contraction. Please document, if known or suspected the diagnosis that was treated during this hospital stay. Thanks for your help. Joce Betts [facility] ____ ( )Bacteremia (Nonspecific laboratory finding of bacteria in the blood) Specify Organism ( ) Present on Admission ( ) Not present on admission ( ) Unable to clinically determine ( ) Septicemia (Systemic disease associated with the presence of pathogenic microorganisms in the blood): Specify Organism ( ) Present on Admission ( ) Not present on admission ( ) Unable to clinically determine (x ) Sepsis Specify Organism - enterococcus Specify Associated Condition/Diagnosis (x ) Present on Admission ( ) Not present on admission ( ) Unable to clinically determine ( ) Severe Sepsis (Sepsis associated with acute organ dysfunction) Specify Organism Specify Associated Condition/Diagnosis ( ) Present on Admission ( ) Not present on admission ( ) Unable to clinically determine ( ) Septic Shock (Severe sepsis with acute circulatory failure, unexplained by other causes) ( ) Present on Admission ( ) Not present on admission ( ) Unable to clinically determine ( ) Other, patient has: MTDD
== END 2022-03-20 08:37 | disposition expired | DRG 871 ==
LOC: ED 23:05 → EDINP 03-13 03:08 → SUATTDRO 03-13 03:08 → 2N 03-13 12:54